=== PATIENT | female | born 1980 | race Caucasian/White ===

== ENCOUNTER 2018-02-14 21:34 | Emergency (ER) | payer MEDICARE ==
[~2018-02-14] VITALS: Ht 167.6 cm; Wt 143.3 kg
[~2018-02-14 21:34] MED LIST: ACHD5005 PO; CEPH250S PO; CLIN300C3 PO; D50KC PO; DOCU-143 PO; FAMO20TA5; FERR-47 PO; KRIL1CAP22 PO; MIRT30TA6 PO; NAPR-243 PO; OMEP20TA2 PO; OMG1KC PO; ONDA-42 SL; QTP100T PO; SULF1TAB35 PO; ZIPR60CA6 PO; ZLP10T PO; ZPR80C
--- OUTSIDE RECORDS SUMMARY | 2018-02-14 21:40 | XMS REPORT ---
Author Author KRISTIN GURROLA Organization [facility] Address [address] [place] [address] Care Team Providers Care Wire Inserter Name Role Phone JEWELLAnaliliaKRISTIN Unavailable PROBLEMS Unknown Problems ALLERGIES Substance Reaction Event Type Date Status Penicillin V Potassium hives Drug Allergy Jul, Active SOCIAL HISTORY No smoking Hx information available PLAN OF CARE VITAL SIGNS Height 66 in 2016-08-04 Weight 318.8 lbs 2016-08-04 Temperature 97.4 degrees Fahrenheit 2016-08-04 Heart Rate 80 bpm 2016-08-04 Respiratory Rate 20 2016-08-04 BMI 51.45 kg/m2 2016-08-04 Blood pressure systolic 132 mmHg 2016-08-04 Blood pressure diastolic 80 mmHg 2016-08-04 MEDICATIONS Medication Instructions Dosage Frequency Start Date End Date Duration Status Omeprazole 20 MG Orally Once a day 2 capsules 24h Active Lisinopril 10 MG Active Geodon 60 MG Orally Twice a day 1 capsule with food 12h Active Mirtazapine 30 MG Orally Once a day 1 tablet at bedtime 24h Active Seroquel 100 MG Orally Once a day 1 tablet 24h Active Amaryl 4 MG Orally Once a day 1 tablet with breakfast or the first main meal of the day 24h Active RESULTS No Results PROCEDURES Procedure Date Ordered Related Diagnosis Body Site FLUARIX QUAD P-FREE 3 AND UP .50 2016 Aug 04, 2016 SINGLE IMMUNIZATION ADMIN Aug 04, 2016 IMMUNIZATIONS Vaccine Route Administration Date Status FLUARIX QUAD P-FREE 3 AND UP .50 2015 IM Intramuscular Aug 04, 2016 Administered
--- OUTSIDE RECORDS SUMMARY | 2018-02-14 21:40 | XMS REPORT | Continuity of Care Document ---
Author Author [facility] Address Unknown Phone Unavailable Allergies Active Description Code Type Severity Reaction Onset Reported/Identified Relationship to Patient Clinical Status Yes PENICILLINS PENICILLINS MODERATE Yes PENICILLINS MODERATE DERMATOLOGICAL - THONG Yes Penicillins [id number] Drug Allergy Moderate HIVES 01/29/2013 Medications Medication Packaging Start Date Stop Date Route Dosage Sig IPRATROPIUM/ALBUTEROL INH SOLN (DUO-NEB INH SOLN) MLS 07/12/2017 07/12/2017 ONCE&2241 CEFUROXIME TAB 250 MG (CEFTIN) MG 07/12/2017 07/12/2017 ONCE&2259 PROMETHAZINE W/ CODEINE LIQ (PHENERGAN) ml 07/12/2017 07/12/2017 PRN ONCE Problems Date Dx Coded Attending Type Code Diagnosis Diagnosed By 01/29/2013 JASMYNE FLETCHER MD Ot 490 BRONCHITIS NOS 01/29/2013 JASMYNE FLETCHER MD Ot 786.2 COUGH 09/15/2013 JASMYNE FLETCHER MD Ot 558.9 NONINF GASTROENTERIT NEC 09/15/2013 JASMYNE FLETCHER MD Ot 787.01 NAUSEA WITH VOMITING 12/08/2014 Ot 719.45 02/17/2015 Ot 719.45 11/26/2015 Ot 719.45 JOINT PAIN- PELVIS 11/27/2015 DAWSON GRAMAJO DO Ot F17.210 NICOTINE DEPENDENCE, CIGARETTES, UNCOMPL 11/27/2015 DAWSON GRAMAJO DO Ot K35.80 UNSPECIFIED ACUTE APPENDICITIS 11/27/2015 DAWSON GRAMAJO DO Ot K42.9 UMBILICAL HERNIA WITHOUT OBSTRUCTION OR 07/12/2017 Sasha Agarwal 466.0 ACUTE BRONCHITIS 07/12/2017 Sasha Agarwal J20.9 ACUTE BRONCHITIS, UNSPECIFIED 09/18/2017 CORI MUHAMMAD 250.80 DIABETES MELLITUS WITH OTHER SPECIFIED MANIFESTATIONS, TYPE II OR UNSPECIFIED TYPE, NOT STATED UNCONTROLLED 09/18/2017 CORI MUHAMMAD 278.00 OBESITY, UNSPECIFIED 09/18/2017 CORI MUHAMMAD W 401.0 MALIGNANT ESSENTIAL HYPERTENSION 09/18/2017 CORI MUHAMMAD E11.65 TYPE 2 DIABETES MELLITUS WITH HYPERGLYCEMIA 09/18/2017 CORI MUHAMMAD E66.9 OBESITY, UNSPECIFIED 09/18/2017 CORI MUHAMMAD W I10 ESSENTIAL (PRIMARY) HYPERTENSION 09/18/2017 CORI MUHAMMAD 250.80 DIABETES MELLITUS WITH OTHER SPECIFIED MANIFESTATIONS, TYPE II OR UNSPECIFIED TYPE, NOT STATED UNCONTROLLED 09/18/2017 CORI MUHAMMAD 278.00 OBESITY, UNSPECIFIED 09/18/2017 CORI MUHAMMAD W 401.0 MALIGNANT ESSENTIAL HYPERTENSION 09/18/2017 CORI MUHAMMAD E11.65 TYPE 2 DIABETES MELLITUS WITH HYPERGLYCEMIA 09/18/2017 CORI MUHAMMAD E66.9 OBESITY, UNSPECIFIED 09/18/2017 CORI MUHAMMAD W I10 ESSENTIAL (PRIMARY) HYPERTENSION 09/18/2017 CORI MUHAMMAD 250.80 DIABETES MELLITUS WITH OTHER SPECIFIED MANIFESTATIONS, TYPE II OR UNSPECIFIED TYPE, NOT STATED UNCONTROLLED 09/18/2017 CORI MUHAMMAD 278.00 OBESITY, UNSPECIFIED 09/18/2017 CORI MUHAMMAD 401.0 MALIGNANT ESSENTIAL HYPERTENSION 09/18/2017 CORI MUHAMMAD E11.65 TYPE 2 DIABETES MELLITUS WITH HYPERGLYCEMIA 09/18/2017 CORI MUHAMMAD E66.9 OBESITY, UNSPECIFIED 09/18/2017 CORI MUHAMMAD I10 ESSENTIAL (PRIMARY) HYPERTENSION Procedures There is no data. Results Test Result Range Uric Acid - 10/03/16 16:20 Uric Acid 5.2 mg/dL 2.6-7.2 BMP - 07/12/17 22:23 Anion Gap 13 6-14 BUN 10 mg/dL 5-25 Calcium 9.1 mg/dL 8.3-10.4 Chloride 104 mmol/L 95-114 CO2 26 mEq/L 22-33 Creat 0.81 mg/dL 0.50-1.50 eGFR 79 mL/min/1.73m2 >59 Glucose 168 mg/dL 70-110 Osmo 290 280-295 Potassium 4.3 mmol/L 3.5-5.3 Sodium 139 mmol/L 134-148 Lipid Panel - 09/18/17 17:56 C/HDL 6.5 3.7-6.7 Cholesterol 200 mg/dL 100-240 HDL 31 mg/dL 30-85 LDL-Calculated 127 mg/dL 0-100 Trig 208 mg/dL 35-160 VLDL 42 mg/dL 0-42 Thyroid Stimulating Hormone - 09/18/17 17:56 TSH 0.97 mIU/mL 0.32-5.00 Encounters ACCT No. Visit Date/Time Discharge Status Pt. Type Provider Facility Loc./Unit Complaint [id number] 11/26/2015 23:37:00 11/27/2015 20:45:00 DIS Outpatient DAWSON GRAMAJO DO [facility] [id number] 09/15/2013 23:08:00 09/15/2013 23:49:00 DIS Emergency JASMYNE FLETCHER MD [facility] ER [id number] 01/29/2013 19:18:00 01/29/2013 20:19:00 DIS Emergency JASMYNE FLETCHER MD [facility] ER [id number] 12/08/2014 15:24:00 Document Registration [id number] 12/29/2010 15:29:00 Document Registration [id number] 09/18/2017 17:55:00 09/18/2017 23:59:00 DIS Outpatient CORI MUHAMMAD [id number] 07/12/2017 21:57:00 07/12/2017 23:23:00 DIS Outpatient Sasha Agarwal [id number] 10/09/2016 16:51:00 10/09/2016 23:59:00 DIS Outpatient CORI MUHAMMAD [id number] 10/03/2016 16:20:00 10/03/2016 23:59:00 DIS Outpatient CORI MUHAMMAD [id number] 07/12/2017 22:41:48 Document Registration
--- OUTSIDE RECORDS SUMMARY | 2018-02-14 21:40 | XMS REPORT | Continuity of Care Document ---
Author Author [facility] Organization [facility] Address Unknown Phone Unavailable Care Team Providers Care Mouse Breeder Name Role Phone CORI MUHAMMAD MD PP Insurance Providers Payer Name Policy Number Subscriber Name Relationship s Medicare [id number] Ariadne Griffith 01 Self / Same As Patient Advance Directives Directive Response Recorded Date Advance Directives N 01/29/13 7:23pm Problems No Known Problems or Medical conditions. Social History History Response Recorded Date/Time Alcohol Use Denies Use 01/29/13 7:23pm Recreational Drug Use N 01/29/13 7:23pm Recent Foreign Travel N 01/29/13 7:23pm Recent Infectious Disease Exposure N 11/08 7:23pm Hospitalization with Isolation Denies 11/08 7:23pm Sexually Transmitted Disease N 01/29/13 7 :23pm HIV/AIDS N 01/29/13 7:23pm Allergies, Adverse Reactions, Alerts Allergen Type Severity Reaction Last Updated Penicillins Allergy Intermediate HIVES 01/29/13 Medications Medication Dose Units Route Sig Qty Days Cephalexin Monohydrate (Keflex Susp) 2 Tsp PO TID 7 Mirtazapine (Mirtazapine 30 Mg) 30 Mg PO HS Zolpidem Tartrate (Ambien 10 Mg) 10 Mg PO HS Quetiapine Fumarate (Seroquel) 100 Mg PO HS Omeprazole 20 Mg PO DAILY Ziprasidone (Geodon) 120 Mg PO HS Naproxen (Naprosyn) 1 Each PO TID PRN 20 Clindamycin HCl (Cleocin Hcl) 1 Each PO QID 40 Trimethoprim/Sulfamethoxazole (Bactrim Ds Tablet) 1 Each PO BID 20 Famotidine (Pepcid) Ziprasidone (Geodon 80 Mg Cap) Response Recorded Date/Time Status not known Unknown Results No Known Relevant Diagnostic Tests, Laboratory Data and/or Discharge Summary. Encounters Encounter Location Date/Time Departed Emergency Room [facility] 11/08 7:18pm
[2018-02-14] MEDS ORDERED: NS IV 1000 ML 1,000 ML IV ONE ×2 (21:56→23:38)
[2018-02-14] MEDS ORDERED: ONDANSETRON 4 MG/2 ML (SDV) Z0FRAN IVP ONE ×2 (22:00→23:15)
[2018-02-14 22:36] LABS: BASOPHILS # (AUTO) 0.1 10^3/uL (0.0-0.1); BASOPHILS % (AUTO) 0 % (0-10); EOSINOPHILS # (AUTO) 0.1 10^3/uL (0.0-0.3); EOSINOPHILS % (AUTO) 1 % (0-10); HEMATOCRIT 34 % (35-52); HEMOGLOBIN 10.4 G/DL (11.5-16.0); LYMPHOCYTES # (AUTO) 4.1 X 10^3 (1.0-4.0); LYMPHOCYTES % (AUTO) 25 % (12-44); MEAN CORPUSCULAR HEMOGLOBIN 20 PG (25-34); MEAN CORPUSCULAR HGB CONC 31 G/DL (32-36); MEAN CORPUSCULAR VOLUME 65 FL (80-99); MEAN PLATELET VOLUME 9.6 FL (7.4-10.4); MONOCYTES # (AUTO) 1.1 X 10^3 (0.0-1.0); MONOCYTES % (AUTO) 7 % (0-12); NEUTROPHILS # (AUTO) 11.1 X 10^3 (1.8-7.8); NEUTROPHILS % (AUTO) 68 % (42-75); PLATELET COUNT 498 10^3/uL (130-400); RED BLOOD COUNT 5.24 10^6/uL (4.35-5.85); RED CELL DISTRIBUTION WIDTH 20.5 % (10.0-14.5); WHITE BLOOD COUNT 16.5 10^3/uL (4.3-11.0)
[2018-02-14] MEDS ORDERED: AMIT100T2 PO (22:42)
[2018-02-14] MEDS ORDERED: LISI10TA2 PO (22:42)
[2018-02-14] MEDS ORDERED: PIOG15TA9 PO (22:42)
--- NOTE | 2018-02-14 22:51 | ED GI ---
General Chief Complaint: Abdominal/GI Problems Stated Complaint: ABD PAIN Nursing Triage Note: PATIENT STATES THAT SHE HAS BEEN UNDER STRESS LATELY AND HAS NOT SLEPT SINCE YESTERDAY AND HAS HAD VOMITED THREE TIMES TODAY AND HAS PRESSURE ACROSS HER MEDIAL ABD. BM NORMAL THIS AM. Sepsis Screen: No Definite Risk Source of Information: Patient (PT IS SOMEWHAT DIFFICULT HISTORIAN) History of Present Illness Date Seen by Provider: Feb 14, 2018 Time Seen by Provider: 21:50 Initial Comments C/O "UPSET STOMACH" SINCE 10:00 AM TODAY HAS "VOMITED" X 3 TODAY--DRY HEAVES. PT STATES "IT'S NOT NAUSEA, IT'S UPSET" HAD 1 LOOSE STOOL TODAY, WHICH IS NORMAL BM FOR PATIENT C/O "STOMACH ACHE" ACROSS UPPER ABDOMEN--STATES "IT'S NOT PAIN, IT'S A STOMACH ACHE" ONLY FOOD INTAKE TODAY WAS PEANUT BUTTER AND JELLY SANDWICH TODAY AT 1500 HAS BEEN DRINKING LIQUIDS STATES SHE HAS BEEN URINATING ALOT TODAY--VOIDED IN WAITING ROOM ON ARRIVAL, AND VOIDED JUST BEFORE SHE LEFT THE HOUSE TO COME TO ER NO SUSPICIOUS FOODS OR SICK CONTACTS PT IS DIABETIC--HAS NOT CHECKED BLOOD GLUCOSE TODAY--"JUST DIDN'T FEEL GOOD" AND DIDN'T FEEL LIKE CHECKING IT. 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 Allergies and Home Medications Allergies Coded Allergies: Penicillins (Unverified Allergy, Intermediate, HIVES, 01/29/13) Home Medications Amitriptyline HCl 100 Mg Tablet, 100 MG PO HS, (Reported) Hyoscyamine Sulfate 0.125 Mg Tab.subl, 1-2 TAB SL Q4H Prescribed by: NATE PAZ on 02/15/18 0022 Krill/Om-3/Dha/Epa/Phospho/Ast 1 Each Capsule, 1 EACH PO DAILY, (Reported) Lisinopril 10 Mg Tablet, 10 MG PO DAILY, (Reported) Omeprazole 20 Mg Tablet.dr, 20 MG PO DAILY, (Reported) Ondansetron 4 Mg Tab.rapdis, 4 MG PO Q4H Prescribed by: NATE PAZ on 02/15/1821 Pioglitazone HCl 15 Mg Tablet, 15 MG PO DAILY, (Reported) Ziprasidone 60 Mg Capsule, 120 MG PO HS, (Reported) Patient Home Medication List Home Medication List Reviewed: Yes Review of Systems Constitutional: no symptoms reported Respiratory: No Symptoms Reported Cardiovascular: No Symptoms Reported Gastrointestinal: See HPI, Abdominal Pain, Nausea Genitourinary: No Symptoms Reported Musculoskeletal: no symptoms reported Skin: no symptoms reported Psychiatric/Neurological: No Symptoms Reported Endocrine: Increased Urine Hematologic/Lymphatic: No Symptoms Reported Past Vtiehav-Xwfpku-Xjheui Hx Patient Social History Alcohol Use: Past History (HX OF ABUSE) Recreational Drug Use: Yes (HX OF ABUSE) Smoking Status: Current Everyday Smoker (1 PPD) Type Used: Cigarettes (1 PPD) Recent Foreign Travel: No Contact w/Someone Who Travel: No Recent Infectious Disease Expo: No Immunizations Up To Date Tetanus Booster (TDap): Unknown Seasonal Allergies Seasonal Allergies: No Past Medical History Surgeries: Yes ( X 2) Appendectomy, Section, Gallbladder, Tubal Ligation Respiratory: No Cardiac: Yes Hypertension Neurological: No : No (PATIENT STATES THAT SHE IS NOT) Reproductive Disorders: Yes (endometriosis) Female 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: 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 Sexually Transmitted Disease: No HIV/AIDS: No Genitourinary: Yes Bladder Infection Gastrointestinal: Yes Gastroesophageal Reflux, Chronic Diarrhea Musculoskeletal: No Endocrine: Yes Diabetes, Non-Insulin dep HEENT: No Cancer: No Psychosocial: Yes (EXTENSIVE PSYCH ISSUES) Sleep Difficulties, Anxiety, Bipolar, Personality Disorder, Schizophrenia, Depression Adverse Reaction/Blood Tranf: No Family Medical History Diabetes mellitus 19 MOTHER FH: lupus 19 MOTHER Hypercholesterolemia 19 MOTHER Hypertension 19 MOTHER Myocardial infarction 19 MOTHER No Pertinent Family Hx Physical Exam Vital Signs Vital Signs - First Documented 02/14/18 21:46 Temp 98.1 Pulse 87 Resp 18 B/P (MAP) 186/96 (126) Pulse Ox 99 O2 Delivery Room Air Capillary Refill : Less Than 3 Seconds Height/Weight/BMI Height: 5'6.00" Weight: 316lbs. 4.0oz. 143.079321ev; 52.9 BMI Method:Stated General Appearance: no apparent distress, obese, other (DOES NOT APPEAR ILL OR TO BE IN ANY DISCOMFORT) HEENT: other (ORAL MUCOSA MOIST) Neck: normal inspection Respiratory: normal breath sounds, no respiratory distress, no accessory muscle use Cardiovascular: regular rate, rhythm, no murmur Gastrointestinal: normal bowel sounds, non tender, soft, no organomegaly, no pulsatile mass; No distended, No guarding, No rebound, No tenderness Extremities: normal inspection, no pedal edema, normal capillary refill Back: normal inspection, no CVA tenderness Neurologic/Psychiatric: him analyst II-XII nml as tested, no motor/sensory deficits, alert, normal mood/affect, oriented x 3 Skin: normal color, warm/dry Progress/Results/Core Measures Results/Orders Lab Results Laboratory Tests Test 02/14/18 22:27 02/15/18 00:10 Range/Units White Blood Count 16.5 H 4.3-11.0 10^3/uL Red Blood Count 5.24 4.35-5.85 10^6/uL Hemoglobin 10.4 L 11.5-16.0 G/DL Hematocrit 34 L 35-52 % Mean Corpuscular Volume 65 L 80-99 FL Mean Corpuscular Hemoglobin 20 L 25-34 PG Mean Corpuscular Hemoglobin Concent 31 L 32-36 G/DL Red Cell Distribution Width 20.5 H 10.0-14.5 % Platelet Count 498 H 130-400 10^3/uL Mean Platelet Volume 9.6 7.4-10.4 FL Neutrophils (%) (Auto) 68 42-75 % Lymphocytes (%) (Auto) 25 12-44 % Monocytes (%) (Auto) 7 0-12 % Eosinophils (%) (Auto) 1 0-10 % Basophils (%) (Auto) 0 0-10 % Neutrophils # (Auto) 11.1 H 1.8-7.8 X 10^3 Lymphocytes # (Auto) 4.1 H 1.0-4.0 X 10^3 Monocytes # (Auto) 1.1 H 0.0-1.0 X 10^3 Eosinophils # (Auto) 0.1 0.0-0.3 10^3/uL Basophils # (Auto) 0.1 0.0-0.1 10^3/uL Neutrophils % (Manual) 54 % Lymphocytes % (Manual) 41 % Monocytes % (Manual) 1 % Eosinophils % (Manual) 1 % Basophils % (Manual) 2 % Band Neutrophils 1 % Blood Morphology Comment NORMAL Sodium Level 137 135-145 MMOL/L Potassium Level 4.2 3.6-5.0 MMOL/L Chloride Level 105 98-107 MMOL/L Carbon Dioxide Level 22 21-32 MMOL/L Anion Gap 10 5-14 MMOL/L Blood Urea Nitrogen 6 L 7-18 MG/DL Creatinine 0.72 0.60-1.30 MG/DL Estimat Glomerular Filtration Rate > 60 BUN/Creatinine Ratio 8 Glucose Level 152 H 70-105 MG/DL Calcium Level 9.6 8.5-10.1 MG/DL Magnesium Level 2.1 1.8-2.4 MG/DL Total Bilirubin 0.2 0.1-1.0 MG/DL Aspartate Amino Transf (AST/SGOT) 14 5-34 U/L Alanine Aminotransferase (ALT/SGPT) 16 0-55 U/L Alkaline Phosphatase 93 40-136 U/L Total Protein 7.7 6.4-8.2 GM/DL Albumin 4.1 3.2-4.5 GM/DL Amylase Level 26 25-125 U/L Lipase 10 8-78 U/L Urine Color YELLOW Urine Clarity CLEAR Urine pH 6.5 5-9 Urine Specific [place] 1.010 L 1.016-1.022 Urine Protein NEGATIVE NEGATIVE Urine Glucose (UA) NEGATIVE NEGATIVE Urine Ketones NEGATIVE NEGATIVE Urine Nitrite NEGATIVE NEGATIVE Urine Bilirubin NEGATIVE NEGATIVE Urine Urobilinogen NORMAL NORMAL MG/DL Urine Leukocyte Esterase 1+ H NEGATIVE Urine RBC (Auto) NEGATIVE NEGATIVE Urine RBC NONE /HPF Urine WBC NONE /HPF Urine Squamous Epithelial Cells 5-10 /HPF Urine Crystals NONE /LPF Urine Bacteria NEGATIVE /HPF Urine Casts NONE /LPF Urine Mucus NEGATIVE /LPF Urine Culture Indicated NO My Orders Orders - NATE PAZ DO Accucheck Stat ONCE (02/14/18 21:56) Saline Lock/Iv-Start (02/14/18 21:56) Amylase (02/14/18 21:56) Cbc With Automated Diff (02/14/18 21:56) Comprehensive Metabolic Panel (02/14/18 21:56) Lipase (02/14/18 21:56) Magnesium (02/14/18 21:56) Ua Culture If Indicated (02/14/18 21:56) Saline Lock/Iv-Start (02/14/18 21:56) Ns Iv 1000 Ml (Sodium Chloride 0.9%) (02/14/18 21:56) Ondansetron Injection (Zofran Injectio (02/14/18 22:00) Manual Differential (02/14/18 22:27) Ondansetron Injection (Zofran Injectio (02/14/18 23:15) Hyoscyamine Sl Tablet (Levsin Sl Tablet) (02/14/18 23:15) Ct Abdomen/Pelvis Wo (02/14/18 23:23) Saline Lock/Iv-Start (02/14/18 23:38) Ns Iv 1000 Ml (Sodium Chloride 0.9%) (02/14/18 23:38) Rx-Hyoscyamine Tab (Rx-Levsin Sl) (02/15/18 00:53) Rx-Ondansetron Po (Rx-Zofran Po) (02/15/18 00:53) Medications Given in ED Current Medications Medications Dose Ordered Sig/Yogesh Route Start Time Stop Time Status Last Admin Dose Admin Hyoscyamine Sulfate 0.25 mg ONCE ONCE PO 02/14/18 23:15 02/14/18 23:16 DC 02/14/18 23:15 0.25 MG Ondansetron HCl 4 mg ONCE ONCE IVP 02/14/18 22:00 02/14/18 22:01 DC 02/14/18 22:46 4 MG Ondansetron HCl 4 mg ONCE ONCE IVP 02/14/18 23:15 02/14/18 23:16 DC 02/14/18 23:15 4 MG Sodium Chloride 1,000 ml @ 0 mls/hr Q0M ONCE IV 02/14/18 21:56 02/14/18 21:58 DC 02/14/18 22:36 999 MLS/HR Sodium Chloride 1,000 ml @ 0 mls/hr Q0M ONCE IV 02/14/18 23:38 02/14/18 23:40 DC 02/14/18 23:57 999 MLS/HR Vital Signs/I&O 02/14/18 21:46 Temp 98.1 Pulse 87 Resp 18 B/P (MAP) 186/96 (126) Pulse Ox 99 O2 Delivery Room Air 02/15/18 00:00 Intake Total 1000 ml Balance 1000 ml Blood Pressure Mean: 126 Progress Progress Note : Progress Note SYMPTOMS RESOLVED WHILE IN XRAY DEPT NO VOMITING OR DIARRHEA DURING ER STAY Diagnostic Imaging Comments CT ABDOMEN/PELVIS--NO ACUTE PROCESS, STABLE FAT-CONTAINING HERNIA, SMALL RIGHT OVARIAN CYST--PER [facility] VIA FAX @ 0205 Reviewed: Reviewed by Me Departure Impression Primary Impression: acute gastroenteritis Disposition: 01 HOME, SELF-CARE Condition: Improved Departure-Patient Inst. Referrals: CORI MUHAMMAD MD (PCP/Family) Primary Care Physician Patient Instructions: Viral Gastroenteritis, Adult (DC) Add. Discharge Instructions: CLEAR LIQUIDS--WATER, BROTH, JELLO, GATORADE TOMORROW IF YOU ARE BETTER, ADD BRATS DIET TO CLEAR LIQUIDS--BANANAS, RICE, APPLESAUCE, TOAST, SALTINES FOLLOW UP WITH YOUR DR IN 2-3 DAYS IF NO BETTER All discharge instructions reviewed with patient and/or family. Voiced understanding. Scripts Hyoscyamine Sulfate (Levsin-Sl) 0.125 Mg Tab.subl 1-2 TAB SL Q4H for Abdominal Pain, #10 TAB Prov: NATE PAZ DO 02/15/18 Ondansetron (Zofran Odt) 4 Mg Tab.rapdis 4 MG PO Q4H for Nausea/Vomiting, #10 TAB Prov: NATE PAZ DO 02/15/18 NATE PAZ DO Feb 14, 2018 22:51
[2018-02-14 22:53] LABS: BAND NEUTROPHILS 1 %; BASOPHILS % (MANUAL) 2 %; EOSINOPHILS % (MANUAL) 1 %; LYMPHOCYTES % (MANUAL) 41 %; MONOCYTES % (MANUAL) 1 %; NEUTROPHILS % (MANUAL) 54 %; RBC MORPH NORMAL
[2018-02-14 22:57] LABS: ALANINE AMINOTRANSFERASE 16 U/L (0-55); ALBUMIN 4.1 GM/DL (3.2-4.5); ALKALINE PHOSPHATASE 93 U/L (40-136); AMYLASE 26 U/L (25-125); BILIRUBIN,TOTAL 0.2 MG/DL (0.1-1.0); BUN/CREATININE RATIO 8; CALCIUM 9.6 MG/DL (8.5-10.1); CARBON DIOXIDE 22 MMOL/L (21-32); CHLORIDE 105 MMOL/L (98-107); CREATININE SERUM 0.72 MG/DL (0.60-1.30); GFR ESTIMATED > 60; GLUCOSE 152 MG/DL (70-105); LIPASE 10 U/L (8-78); MAGNESIUM 2.1 MG/DL (1.8-2.4); POTASSIUM 4.2 MMOL/L (3.6-5.0); SODIUM 137 MMOL/L (135-145); TOTAL PROTEIN 7.7 GM/DL (6.4-8.2)
[2018-02-14] MEDS ORDERED: HYOSCYAMINE 0.125 MG (LEVSIN) TAB PO ONE (23:15)
[2018-02-15] MEDS ORDERED: ONDA4TAB8 PO (00:22)
[2018-02-15] MEDS ORDERED: HYOS0.1283 SL (00:22)
[2018-02-15 00:40] LABS: BILIRUBIN,URINE NEGATIVE (NEGATIVE); CLARITY,URINE CLEAR; COLOR,URINE YELLOW; GLUCOSE, URINE (UA) NEGATIVE (NEGATIVE); KETONES,URINE NEGATIVE (NEGATIVE); LEUKOCYTE ESTERASE ,URINE 1+ (NEGATIVE); NITRITE,URINE NEGATIVE (NEGATIVE); PH,URINE 6.5 (5-9); PROTEIN,URINE NEGATIVE (NEGATIVE); UROBILINOGEN,URINE NORMAL (NORMAL)
[2018-02-15 00:51] LABS: BACTERIA,URINE NEGATIVE /HPF
[2018-02-15] MEDS ORDERED: RX-ONDANSETRON 4 MG ODT (ZOFRAN) PPK #4 PO STA (00:53)
[2018-02-15] MEDS ORDERED: RX-HYOSCYAMINE 0.125 MG SL (LEVSIN) PPK#6 SL STA (00:53)
[2018-02-15 01:17] VITALS: BP 166/82
--- NOTE | 2018-02-15 06:38 | Diagnostic Imaging Report ---
PROCEDURE: CT abdomen and pelvis without contrast. TECHNIQUE: Multiple contiguous axial images were obtained through the abdomen and pelvis without the use of intravenous contrast. INDICATION: Abdominal pain. FINDINGS: The previous exam of 11/26/2015 indicated acute appendicitis. In the interval since the prior study, the patient has undergone an appendectomy. As noted on the prior exam, there has also been a prior cholecystectomy. The previous study also revealed a fat-containing umbilical hernia. The hernia has increased in size somewhat since the prior exam and now measures 6.8 cm as opposed to 6.3 cm previously; however, there is still no incarceration or obstruction of the bowel by the hernia. The liver, spleen, pancreas, adrenals, kidneys, aorta and inferior vena cava are unremarkable for an acute abnormality. The stomach is not well distended and consequently difficult to assess. The images through the pelvis show that the uterus is prominent but not enlarged. As noted on the prior study, there has been a prior tubal ligation. Also, as seen on the prior exam, there does appear to be a cyst associated with the right ovary. The cyst is similar in size measuring approximately 3.1 cm. Left ovary is unremarkable. There is no clear evidence for diverticulosis or diverticulitis. The lung bases are clear. The bone windows show no sign of a fracture or of a destructive lesion. IMPRESSION: 1. In the interval since the prior study, the patient has undergone appendectomy. The overall appearance of the abdomen and pelvis has not changed significantly otherwise. There is no acute abnormality evident. 2. There has also been a prior cholecystectomy and a tubal ligation procedure. 3. The small cyst associated with the right ovary and the fat-containing umbilical hernia noted on the prior study are essentially no different. Dictated by: Dictated on workstation # [id number]
== END 2018-02-15 01:18 | disposition home or self-care (01) ==
LOC: EDUNIT# 21:34 → ER 21:35
DX: K52.9 Noninfective gastroenteritis and colitis, unspecified (principal); I10 Essential (primary) hypertension; K21.9 Gastro-esophageal reflux disease without esophagitis; E11.9 Type 2 diabetes mellitus without complications; F41.9 Anxiety disorder, unspecified; F31.9 Bipolar disorder, unspecified; F20.9 Schizophrenia, unspecified; F17.210 Nicotine dependence, cigarettes, uncomplicated; Z90.89 Acquired absence of other organs; Z82.49 Family history of ischemic heart disease and other diseases of the circulatory system; Z87.448 Personal history of other diseases of urinary system; Z87.19 Personal history of other diseases of the digestive system; Z87.59 Personal history of other complications of pregnancy, childbirth and the puerperium; Z98.51 Tubal ligation status; Z88.0 Allergy status to penicillin; Z79.52 Long term (current) use of systemic steroids
CPT/HCPCS: 36415; 74176; 80053; 81000; 82150; 83690; 83735; 85007; 85027; 96374; 96375

== ENCOUNTER 2018-07-17 20:33 | Emergency (ER) | payer MEDICARE, OTHER ==
[~2018-07-17] VITALS: Ht 167.6 cm; Wt 137.0 kg
[~2018-07-17 20:33] MED LIST changes: +AMIT100T2 PO; +HYOS0.1283 SL; +LISI10TA2 PO; +ONDA4TAB8 PO; +PIOG15TA9 PO
--- OUTSIDE RECORDS SUMMARY | 2018-07-17 20:38 | XMS REPORT | Continuity of Care Document ---
Author Author [facility] Address Unknown Phone Unavailable Allergies Active Description Code Type Severity Reaction Onset Reported/Identified Relationship to Patient Clinical Status Yes PENICILLINS PENICILLINS MODERATE Yes PENICILLINS MODERATE DERMATOLOGICAL - THONG Yes Penicillins [id number] Drug Allergy Moderate HIVES 01/29/2013 Medications Medication [...] 09/18/2017 CORI MUHAMMAD I10 ESSENTIAL (PRIMARY) HYPERTENSION 09/18/2017 CORI MUHAMMAD 250.80 DIABETES MELLITUS WITH OTHER SPECIFIED MANIFESTATIONS, TYPE II OR UNSPECIFIED TYPE, NOT STATED UNCONTROLLED 09/18/2017 CORI MUHAMMAD 278.00 OBESITY, UNSPECIFIED 09/18/2017 CORI MUHAMMAD 401.0 MALIGNANT ESSENTIAL HYPERTENSION 09/18/2017 CORI MUHAMMAD E11.65 TYPE 2 DIABETES MELLITUS WITH HYPERGLYCEMIA 09/18/2017 CORI MUHAMMAD E66.9 OBESITY, UNSPECIFIED 09/18/2017 CORI MUHAMMAD W I10 ESSENTIAL (PRIMARY) HYPERTENSION 02/15/2018 BRANDI DO, NATE K Ot E11.9 TYPE 2 DIABETES MELLITUS WITHOUT COMPLIC 02/15/2018 BRANDI DO, NATE K Ot F17.210 NICOTINE DEPENDENCE, CIGARETTES, UNCOMPL 02/15/2018 BRANDI DO, NATE K Ot F20.9 SCHIZOPHRENIA, UNSPECIFIED 02/15/2018 BRANDI DO, NATE K Ot F31.9 BIPOLAR DISORDER, UNSPECIFIED 02/15/2018 BRANDI DO, NATE K Ot F41.9 ANXIETY DISORDER, UNSPECIFIED 02/15/2018 BRANDI DO, NATE K Ot I10 ESSENTIAL (PRIMARY) HYPERTENSION 02/15/2018 BRANDI DO, NATE K Ot K21.9 GASTRO-ESOPHAGEAL REFLUX DISEASE WITHOUT 02/15/2018 BRANDI DO, NATE K Ot K52.9 NONINFECTIVE GASTROENTERITIS AND COLITIS 02/15/2018 NATE PAZ DO Ot R11.10 VOMITING, UNSPECIFIED 02/15/2018 NATE PAZ DO Ot Z79.52 HALF-WAY (CURRENT) USE OF SYSTEMIC STER 02/15/2018 NATE PAZ DO Ot Z82.49 FAMILY HX OF ISCHEM HEART DIS AND OTH DI 02/15/2018 NATE PAZ DO Ot Z87.19 PERSONAL HISTORY OF OTHER DISEASES OF TH 02/15/2018 NATE PAZ DO Ot Z87.448 PERSONAL HISTORY OF OTHER DISEASES OF UR 02/15/2018 NATE PAZ DO Ot Z87.59 PERSONAL HISTORY OF COMP OF PREG, CHLDBR 02/15/2018 NATE PAZ DO Ot Z88.0 ALLERGY STATUS TO PENICILLIN 02/15/2018 NATE PAZ DO Ot Z90.89 ACQUIRED ABSENCE OF OTHER ORGANS 02/15/2018 NATE PAZ DO Ot Z98.51 TUBAL LIGATION STATUS 02/17/2018 NATE PAZ DO Ot E11.9 TYPE 2 DIABETES MELLITUS WITHOUT COMPLIC 02/17/2018 NATE PAZ DO Ot F17.210 NICOTINE DEPENDENCE, CIGARETTES, UNCOMPL 02/17/2018 NATE PAZ DO Ot F20.9 SCHIZOPHRENIA, UNSPECIFIED 02/17/2018 NATE PAZ DO Ot F31.9 BIPOLAR DISORDER, UNSPECIFIED 02/17/2018 NATE PAZ DO Ot F41.9 ANXIETY DISORDER, UNSPECIFIED 02/17/2018 NATE PAZ DO Ot I10 ESSENTIAL (PRIMARY) HYPERTENSION 02/17/2018 NATE PAZ DO Ot K21.9 GASTRO-ESOPHAGEAL REFLUX DISEASE WITHOUT 02/17/2018 LIAM PAZ DOA Erica Ot K52.9 NONINFECTIVE GASTROENTERITIS AND COLITIS 02/17/2018 NATE PAZ DO Ot R11.10 VOMITING, UNSPECIFIED 02/17/2018 NATE PAZ DO Ot Z79.52 HALF-WAY (CURRENT) USE OF SYSTEMIC STER 02/17/2018 NATE PAZ DO Ot Z82.49 FAMILY HX OF ISCHEM HEART DIS AND OTH DI 02/17/2018 NATE PAZ DO Ot Z87.19 PERSONAL HISTORY OF OTHER DISEASES OF 02/17/2018 NATE PAZ DO Ot Z87.448 PERSONAL HISTORY OF OTHER DISEASES OF UR 02/17/2018 NATE PAZ DO Ot Z87.59 PERSONAL HISTORY OF COMP OF PREG, CHLDBR 02/17/2018 NATE PAZ DO Ot Z88.0 ALLERGY STATUS TO PENICILLIN 02/17/2018 NATE PAZ DO Ot Z90.89 ACQUIRED ABSENCE OF OTHER ORGANS 02/17/2018 NATE PAZ DO Ot Z98.51 TUBAL LIGATION STATUS Procedures There is no data. Results Test [...] - 09/18/17 17:56 TSH 0.97 mIU/mL 0.32-5.00 Complete blood count (CBC) with automated white blood cell (WBC) differential - 02/14/18 22:27 Blood leukocytes automated count (number/volume) 16.5 10*3/uL 4.3-11.0 Blood erythrocytes automated count (number/volume) 5.24 10*6/uL 4.35-5.85 Venous blood hemoglobin measurement (mass/volume) 10.4 g/dL 11.5-16.0 Blood hematocrit (volume fraction) 34 % 35-52 Automated erythrocyte mean corpuscular volume 65 [foz_us] 80-99 Automated erythrocyte mean corpuscular hemoglobin (mass per erythrocyte) 20 pg 25-34 Automated erythrocyte mean corpuscular hemoglobin concentration measurement ( mass/volume) 31 g/dL 32-36 Automated erythrocyte distribution width ratio 20.5 % 10.0-14.5 Automated blood platelet count (count/volume) 498 10*3/uL 130-400 Automated blood platelet mean volume measurement 9.6 [foz_us] 7.4-10.4 Automated blood neutrophils/100 leukocytes 68 % 42-75 Automated blood lymphocytes/100 leukocytes 25 % 12-44 Blood monocytes/100 leukocytes 7 % 0-12 Automated blood eosinophils/100 leukocytes 1 % 0-10 Automated blood basophils/100 leukocytes 0 % 0-10 Blood neutrophils automated count (number/volume) 11.1 10*3 1.8-7.8 Blood lymphocytes automated count (number/volume) 4.1 10*3 1.0-4.0 Blood monocytes automated count (number/volume) 1.1 10*3 0.0-1.0 Automated eosinophil count 0.1 10*3/uL 0.0-0.3 Automated blood basophil count (count/volume) 0.1 10*3/uL 0.0-0.1 Blood manual differential performed detection - 02/14/18 22:27 Blood monocytes/100 leukocytes 1 % NRG Manual blood segmented neutrophils/100 leukocytes 54 % NRG Blood band neutrophils/100 leukocytes 1 % NRG Manual blood lymphocytes/100 leukocytes 41 % NRG Manual eosinophils/100 leukocytes in nose 1 % NRG Manual blood basophils/100 leukocytes 2 % NRG Blood erythrocyte morphology finding identification [facility] Comprehensive metabolic panel - 02/14/18 22:27 Serum or plasma sodium measurement (moles/volume) 137 mmol/L 135-145 Serum or plasma potassium measurement (moles/volume) 4.2 mmol/L 3.6-5.0 Serum or plasma chloride measurement (moles/volume) 105 mmol/L 98-107 Carbon dioxide 22 mmol/L 21-32 Serum or plasma anion gap determination (moles/volume) 10 mmol/L 5-14 Serum or plasma urea nitrogen measurement (mass/volume) 6 mg/dL 7-18 Serum or plasma creatinine measurement (mass/volume) 0.72 mg/dL 0.60-1.30 Serum or plasma urea nitrogen/creatinine mass ratio 8 NRG Serum or plasma creatinine measurement with calculation of estimated glomerular filtration rate > NRG Serum or plasma glucose measurement (mass/volume) 152 mg/dL 70-105 Serum or plasma calcium measurement (mass/volume) 9.6 mg/dL 8.5-10.1 Serum or plasma total bilirubin measurement (mass/volume) 0.2 mg/dL 0.1-1.0 Serum or plasma alkaline phosphatase measurement (enzymatic activity/volume) 93 U/L 40-136 Serum or plasma aspartate aminotransferase measurement (enzymatic activity/ volume) 14 U/L 5-34 Serum or plasma alanine aminotransferase measurement (enzymatic activity/volume ) 16 U/L 0-55 Serum or plasma protein measurement (mass/volume) 7.7 g/dL 6.4-8.2 Serum or plasma albumin measurement (mass/volume) 4.1 g/dL 3.2-4.5 Magnesium - 02/14/18 22:27 Magnesium 2.1 mg/dL 1.8-2.4 Serum or plasma amylase measurement (enzymatic activity/volume) - 02/14/18 22: 27 Serum or plasma amylase measurement (enzymatic activity/volume) 26 U /L 25-125 Lipase - 02/14/18 22:27 Lipase 10 U/L 8-78 Complete urinalysis with reflex to culture - 02/15/18 00:10 Urine color determination YELLOW NRG Urine clarity determination CLEAR NRG Urine pH measurement by test strip 6.5 5-9 Specific gravity of urine by test strip 1.010 1.016- 1.022 Urine protein assay by test strip, semi-quantitative NEGATIVE NEGATIVE Urine glucose detection by automated test strip NEGATIVE NEGATIVE Erythrocytes detection in urine sediment by light microscopy NEGATIVE NEGATIVE Urine ketones detection by automated test strip NEGATIVE NEGATIVE Urine nitrite detection by test strip NEGATIVE NEGATIVE Urine total bilirubin detection by test strip NEGATIVE NEGATIVE Urine urobilinogen measurement by automated test strip (mass/volume) NORMAL NORMAL Urine leukocyte esterase detection by dipstick 1+ NEGATIVE Automated urine sediment erythrocyte count by microscopy (number/high power field) NONE NRG Automated urine sediment leukocyte count by microscopy (number/high power field ) NONE NRG Bacteria detection in urine sediment by light microscopy NEGATIVE NRG Squamous epithelial cells detection in urine sediment by light microscopy 5-10 NRG Crystals detection in urine sediment by light microscopy NONE NRG Casts detection in urine sediment by light microscopy NONE NRG Mucus detection in urine sediment by light microscopy NEGATIVE NRG Complete urinalysis with reflex to culture NO NRG Encounters ACCT No. Visit Date/Time Discharge Status Pt. Type Provider Facility Loc./Unit Complaint [id number] 02/14/2018 21:35:00 02/15/2018 01:18:00 DIS Emergency NATE PAZ DO [facility] ER ABD PAIN [id number] 11/26/2015 23:37:00 11/27/2015 20:45:00 DIS Outpatient DAWSON GRAMAJO DO [facility] ACUTE APPENDICITIS; URI [id number] 09/15/2013 23:08:00 09/15/2013 23:49:00 DIS Emergency JASMYNE FLETCHER MD [facility] ER N/V/D/F [id number] 01/29/2013 19:18:00 01/29/2013 20:19:00 DIS Emergency JASMYNE FLETCHER MD [facility] ER COUGH [id number] 07/17/2018 20:34:00 ACT Emergency NATE PAZ DO [facility] ER HEMORRHOID PAIN [id number] 12/08/2014 15:24:00 Document Registration [id number] 12/29/2010 15:29:00 Document Registration [id number] 09/18/2017 17:55:00 09/18/2017 23:59:00 DIS Outpatient CORI MUHAMMAD [id number] 07/12/2017 21:57:00 07/12/2017 23:23:00 DIS Outpatient Sasha Agarwal [id number] 10/09/2016 16:51:00 10/09/2016 23:59:00 DIS Outpatient CORI MUHAMMAD [id number] 10/03/2016 16:20:00 10/03/2016 23:59:00 DIS Outpatient CORI MUHAMMAD [id number] 07/12/2017 22:41:48 Document Registration
--- NOTE | 2018-07-17 21:06 | ED GI ---
General Chief Complaint: Rect Problems Stated Complaint: HEMORRHOID PAIN Nursing Triage Note: Pt has cc of hemorroid. Pt has had rectal pain/hemorroid pain for the past two weeks, but at 0400 the pain increased. Pt stated it is on left side and she thinks it is on the inside. Pt stated she has needed surgery on it for long time and put it off, because she was scared of it, but now realizes that she needs it. Pt stated hurts after eating. Sepsis Screen: No Definite Risk Source of Information: Patient Exam Limitations: No Limitations History of Present Illness Date Seen by Provider: Jul 17, 2018 Time Seen by Provider: 21:01 Initial Comments To ER with c/o hemorrhoid pain. She's had hemorrhoid pain for 2 weeks, worse for 3 days. She reports pain which feels like it is on the back left side of the anus. She did have some bloody stool after a bowel movement yesterday. Pain is worse with bowel movements. She is scheduled to see Dr. Chaudhry from surgery on 07/24. Timing/Duration: 1-2 Days Severity/Quality: Moderate Radiation: No Radiation Allergies and Home Medications Allergies Coded Allergies: Penicillins (Unverified Allergy, Intermediate, HIVES, 01/29/13) Home Medications Amitriptyline HCl 100 Mg Tablet, 100 MG PO HS, (Reported) Hyoscyamine Sulfate 0.125 Mg Tab.subl, 1-2 TAB SL Q4H Prescribed by: NATE PAZ on 02/15/1821 Krill/Om-3/Dha/Epa/Phospho/Ast 1 Each Capsule, 1 EACH PO DAILY, (Reported) Lisinopril 10 Mg Tablet, 10 MG PO DAILY, (Reported) Omeprazole 20 Mg Tablet.dr, 20 MG PO DAILY, (Reported) Ondansetron 4 Mg Tab.rapdis, 4 MG PO Q4H Prescribed by: NATE PAZ on 02/15/1821 Pioglitazone HCl 15 Mg Tablet, 15 MG PO DAILY, (Reported) Ziprasidone 60 Mg Capsule, 120 MG PO HS, (Reported) Patient Home Medication List Home Medication List Reviewed: Yes Review of Systems Review of Systems Constitutional: see HPI EENTM: No Symptoms Reported Respiratory: No Symptoms Reported Cardiovascular: No Symptoms Reported Gastrointestinal: See HPI, Rectal Bleeding Genitourinary: No Symptoms Reported Musculoskeletal: no symptoms reported Skin: no symptoms reported Psychiatric/Neurological: No Symptoms Reported Past Bwszosk-Qiwoxd-Ywhlhu Hx Patient Social History Alcohol Use: Denies Use Recreational Drug Use: No Smoking Status: Current Everyday Smoker Type Used: Cigarettes Recent Foreign Travel: No Contact w/Someone Who Travel: No Recent Infectious Disease Expo: No Recent Hopitalizations: No Immunizations Up To Date Tetanus Booster (TDap): Unknown Seasonal Allergies Seasonal Allergies: No Past Medical History Surgeries: Yes ( X 2) Appendectomy, Section, Gallbladder, Tubal Ligation Respiratory: No Cardiac: Yes Hypertension Neurological: No Last Menstrual Period: Jun 18, 2018 Reproductive Disorders: Yes (endometriosis) Female Reproductive Disorders: Endometriosis 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 Sexually Transmitted Disease: No HIV/AIDS: No Genitourinary: Yes Bladder Infection Gastrointestinal: Yes Gastroesophageal Reflux, Chronic Diarrhea Musculoskeletal: No Endocrine: Yes Diabetes, Non-Insulin dep HEENT: No Cancer: No Psychosocial: Yes (EXTENSIVE PSYCH ISSUES) Sleep Difficulties, Anxiety, Bipolar, Personality Disorder, Schizophrenia, Depression Integumentary: Yes (Scalp irritation after shampoo, ITCHY SKIN) Blood Disorders: Yes (Iron deficiency) Adverse Reaction/Blood Tranf: No Family Medical History Diabetes mellitus 19 MOTHER FH: lupus 19 MOTHER Hypercholesterolemia 19 MOTHER Hypertension 19 MOTHER Myocardial infarction 19 MOTHER No Pertinent Family Hx Physical Exam Vital Signs Vital Signs - First Documented 07/17/18 20:40 Temp 99.6 Pulse 101 Resp 22 B/P (MAP) 174/93 (120) Pulse Ox 97 O2 Delivery Room Air Capillary Refill : Less Than 3 Seconds Height/Weight/BMI Height: 5'6.00" Weight: 302lbs. 4.0oz. [id number]; 52.9 BMI Method:Stated General Appearance: WD/WN, no apparent distress HEENT: PERRL/EOMI, normal ENT inspection Respiratory: no respiratory distress, no accessory muscle use Gastrointestinal: normal bowel sounds, non tender, soft Rectal: other (rectal exam done with calor RN at the bedside. There are several hemorrhoids. There is one area on the posterior left that appears to be either a small acutely thrombosed hemorrhoid or inflamed tile from a fissure.) Neurologic/Psychiatric: alert, normal mood/affect, oriented x 3 Skin: normal color, warm/dry Progress/Results/Core Measures Results/Orders My Orders Orders - ELYSIA CAMACHO APRN Lidocaine 2% Jelly 30 Ml (Xylocaine Jell (07/17/18 21:00) Hydrocortisone 1% Ointment (Hydrocortiso (07/17/18 21:00) Vital Signs/I&O 07/17/18 20:40 Temp 99.6 Pulse 101 Resp 22 B/P (MAP) 174/93 (120) Pulse Ox 97 O2 Delivery Room Air Blood Pressure Mean: 120 Departure Impression Primary Impression: Hemorrhoids Qualified Codes: K64.9 - Unspecified hemorrhoids Disposition: HOME, SELF-CARE Condition: Stable Departure-Patient Inst. Decision time for Depature: 21:05 Referrals: CORI MUHAMMAD MD (PCP/Family) Primary Care Physician Patient Instructions: Hemorrhoids (DC), Anal Fissure (DC) Add. Discharge Instructions: 1. Apply topical hydrocortisone cream twice daily. Apply the lidocaine jelly as needed for pain control. Do your best to keep her stools very soft which includes lots of water, lots of fiber, stool softener like Colace one tablet twice daily and MiraLAX as needed. ELYSIA CAMACHO APRN Jul 17, 2018 21:05
[2018-07-17 21:15] VITALS: BP 163/107
[2018-07-17] MEDS: HYDROCORTISONE 1% OINT 30 GM TUBE TOP SCH (21:18)
[2018-07-17] MEDS: LIDOCAINE JELLY 2% (XYLOCAINE) 30 ML TUBE TOP ONE (21:19)
[2018-07-17] MEDS: HYDROCORTISONE 1% CREAM 30 GM TUBE ONE (21:29)
[2018-07-17] MEDS: LIDOCAINE 2% VISCOUS 15 ML UDC ONE (21:30)
== END 2018-07-17 21:15 | disposition home or self-care (01) ==
LOC: EDUNIT# 20:33 → ER 20:34
DX: K64.9 Unspecified hemorrhoids (principal); K21.9 Gastro-esophageal reflux disease without esophagitis; E11.9 Type 2 diabetes mellitus without complications; F31.9 Bipolar disorder, unspecified; F41.9 Anxiety disorder, unspecified; F20.9 Schizophrenia, unspecified; F60.9 Personality disorder, unspecified; F17.210 Nicotine dependence, cigarettes, uncomplicated; I10 Essential (primary) hypertension; Z88.0 Allergy status to penicillin; Z90.49 Acquired absence of other specified parts of digestive tract; Z98.51 Tubal ligation status
CPT/HCPCS: 99283

== ENCOUNTER 2019-08-04 18:38 | Emergency (ER) | payer MEDICARE ==
[~2019-08-04] VITALS: Ht 167 cm; Wt 131.6 kg
[2019-08-04] MEDS ORDERED: CEPH500T PO (19:42)
--- NOTE | 2019-08-04 19:42 | ED EENT ---
History of Present Illness General Chief Complaint: Dental Problems/Pain Stated Complaint: TOOTH PAIN Nursing Triage Note: TOOTH PAIN STARTING 3-4 DAYS AGO. History of Present Illness Date Seen by Provider: Aug 04, 2019 Time Seen by Provider: 19:00 Initial Comments 39 year-old female Patient reports dental pain, present for the last 3 -4 days, left lower. She has an appointment at the dental clinic tomorrow at 8 AM, however her family with concern is to be started on an antibiotic tonight and not wait until tomorrow. Prearrival Treatment: over the counter meds (Tylenol approximately 8 hours ago.) Associated Symptoms: No denies symptoms, No change in hearing, No cough, No drooling, No ear drainage, No facial pain/swelling, No fever, No malaise, No nasal congestion/drainage, No poor fluid intake, No poor solids intake, No sinus infection, No sore throat; tooth pain; No voice change, No other Allergies and Home Medications Allergies Coded Allergies: Penicillins (Unverified Allergy, Intermediate, HIVES, 01/29/13) Home Medications Amitriptyline HCl 100 Mg Tablet, 100 MG PO HS, (Reported) Cephalexin 500 Mg Tablet, 500 MG PO TID Prescribed by: TERRI JIMENES on 08/04/191941 Hyoscyamine Sulfate 0.125 Mg Tab.subl, 1-2 TAB SL Q4H Prescribed by: NATE PAZ on 02/15/1821 Krill/Om-3/Dha/Epa/Phospho/Ast 1 Each Capsule, 1 EACH PO DAILY, (Reported) Lisinopril 10 Mg Tablet, 10 MG PO DAILY, (Reported) Omeprazole 20 Mg Tablet.dr, 20 MG PO DAILY, (Reported) Ondansetron 4 Mg Tab.rapdis, 4 MG PO Q4H Prescribed by: NATE PAZ on 02/15/1821 Pioglitazone HCl 15 Mg Tablet, 15 MG PO DAILY, (Reported) Ziprasidone 60 Mg Capsule, 120 MG PO HS, (Reported) Patient Home Medication List Home Medication List Reviewed: Yes Review of Systems Review of Systems Constitutional: no symptoms reported, see HPI Mouth: see HPI; denies loose teeth; pain (dental) All Other Systems Reviewed Negative Unless Noted: Yes Past Nmyvyex-Mmriul-Ofeowl Hx Past Med/Social Hx: Reviewed Nursing Past Med/Soc Hx Patient Social History Type Used: Cigarettes Recent Foreign Travel: No Contact w/Someone Who Travel: No Recent Infectious Disease Expo: No Recent Hopitalizations: No Immunizations Up To Date Tetanus Booster (TDap): Unknown Seasonal Allergies Seasonal Allergies: No Past Medical History Surgeries: Yes ( X 2) Appendectomy, Section, Gallbladder, Tubal Ligation Respiratory: No Cardiac: Yes Hypertension Neurological: No Reproductive Disorders: Yes (endometriosis) Female 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 Sexually Transmitted Disease: No HIV/AIDS: No Genitourinary: Yes Bladder Infection Gastrointestinal: Yes Gastroesophageal Reflux, Chronic Diarrhea Musculoskeletal: No Endocrine: Yes Diabetes, Non-Insulin dep HEENT: No Cancer: No Psychosocial: Yes (EXTENSIVE PSYCH ISSUES) Sleep Difficulties, Anxiety, Bipolar, Personality Disorder, Schizophrenia, Depression Integumentary: Yes (Scalp irritation after shampoo, ITCHY SKIN) Blood Disorders: Yes (Iron deficiency) Adverse Reaction/Blood Tranf: No Family Medical History Diabetes mellitus 19 MOTHER FH: lupus 19 MOTHER Hypercholesterolemia 19 MOTHER Hypertension 19 MOTHER Myocardial infarction 19 MOTHER No Pertinent Family Hx Physical Exam Vital Signs Vital Signs - First Documented 08/04/19 18:49 Temp 37.1 Pulse 90 Resp 16 B/P (MAP) 160/75 (103) Pulse Ox 100 O2 Delivery Room Air Height, Weight, BMI Height: 5'6.00" Weight: 302lbs. 4.0oz. 136.526423bk; 47.00 BMI Method:Stated General Appearance: no apparent distress Ears: bilateral ear auricle normal, bilateral ear canal normal, bilateral ear TM normal Nose: normal inspection; No active bleeding, No discharge Mouth/Throat: pharynx normal; No mandibular swelling, No maxillary swelling, No pharynx swelling; other (inflammation and tenderness left lower molar. ) Neck: non-tender, full range of motion; No lymphadenopathy (R), No lymphadenopathy (L) Cardiovascular: normal peripheral pulses, regular rate, rhythm Respiratory: chest non-tender, lungs clear, normal breath sounds Neurologic/Psychiatric: no motor/sensory deficits, alert, normal mood/affect, oriented x 3 Skin: normal color, warm/dry; No rash Progress/Results/Core Measures Results/Orders My Orders Orders - TERRI JIMENES Cephalexin Capsule (Keflex Capsule) (08/04/19 19:43) Ibuprofen Tablet (Motrin Tablet) (08/04/19 19:45) Medications Given in ED Current Medications Medications Dose Ordered Sig/Yogesh Route Start Time Stop Time Status Last Admin Dose Admin Ibuprofen 600 mg ONCE ONCE PO 08/04/19 19:45 08/04/19 19:46 DC 08/04/19 19:49 600 MG Vital Signs/I&O 08/04/19 08/04/19 18:49 19:50 Temp 37.1 37.1 Pulse 90 90 Resp 16 16 B/P (MAP) 160/75 (103) 160/75 (103) Pulse Ox 100 100 O2 Delivery Room Air Blood Pressure Mean: 103 Departure Impression Primary Impression: Dental abscess Additional Impression: Pain, dental Disposition: HOME, SELF-CARE Condition: Improved Departure-Patient Inst. Decision time for Depature: 19:40 Referrals: CORI MUHAMMAD MD (PCP/Family) Primary Care Physician Patient Instructions: Dental Pain (DC) Add. Discharge Instructions: Warm salt water gargles every 2 hours while awake. Take antibiotics as prescribed and keep her scheduled appointment with the dentist for tomorrow morning. Alternate between Tylenol 650 mg and ibuprofen 600 mg every 4 hours for pain. Alternate warm compresses and ice to left cheek. Use [id number] dental pain relief medications as needed, such as Oragel. Return to the emergency department for new, urgent health care needs. All discharge instructions reviewed with patient and/or family. Voiced understanding. Scripts Cephalexin (Cephalexin) 500 Mg Tablet 500 MG PO TID, #15 TAB 0 Refills Prov: TERRI JIMENES 08/04/19 TERRI JIMENES Aug 04, 2019 19:42
[2019-08-04] MEDS ORDERED: CEPHALEXIN 250 MG (KEFLEX) CAP PO STA (19:43)
[2019-08-04] MEDS ORDERED: IBUPROFEN 600 MG (MOTRIN) TAB PO ONE (19:45)
[2019-08-04 19:50] VITALS: BP 160/75
== END 2019-08-04 19:50 | disposition home or self-care (01) ==
LOC: EDUNIT# 18:38 → ER 18:39
DX: K04.7 Periapical abscess without sinus (principal); I10 Essential (primary) hypertension; K21.9 Gastro-esophageal reflux disease without esophagitis; E11.9 Type 2 diabetes mellitus without complications; F41.9 Anxiety disorder, unspecified; F31.9 Bipolar disorder, unspecified; F60.9 Personality disorder, unspecified; F20.9 Schizophrenia, unspecified; Z88.0 Allergy status to penicillin; Z90.49 Acquired absence of other specified parts of digestive tract; Z98.51 Tubal ligation status; Z82.49 Family history of ischemic heart disease and other diseases of the circulatory system
CPT/HCPCS: 99283

== ENCOUNTER 2019-08-21 21:03 | Emergency (ER) | payer MEDICARE ==
[~2019-08-21] VITALS: Ht 167.7 cm; Wt 131.6 kg
[~2019-08-21 21:03] MED LIST changes: +CEPH500T PO
--- NOTE | 2019-08-21 21:44 | ED Fall/Injury ---
General Chief Complaint: Trauma-Non Activation Stated Complaint: FELL DOWN STAIRS Source: patient Exam Limitations: no limitations History of Present Illness Date Seen by Provider: Aug 21, 2019 Time Seen by Provider: 21:30 Initial Comments To ER with c/o diffuse midline back pain from neck to tailbone. She fell down her stairs yesterday at about 1 PM while taking her dog outside and hit her mid and low back on every step on the way down. She did not hit her head. She denies any extremity abdomen or chest pain. She also reports that her "chronic idiopathic urticaria" is "flaring up" and she would like something for it. Occurred: just prior to arrival Severity: moderate Injuries/Pain Location: no injury, back Context: slipped Loss of Consciousness: no loss of consciousness Associated Symptoms (Fall): No Headache; Neck Pain Allergies and Home Medications Allergies Coded Allergies: Penicillins (Unverified Allergy, Intermediate, HIVES, 01/29/13) Home Medications Amitriptyline HCl 100 Mg Tablet, 100 MG PO HS, (Reported) Cephalexin 500 Mg Tablet, 500 MG PO TID Prescribed by: TERRI JIMENES on 08/04/191941 Hydroxyzine Pamoate 25 Mg Capsule, 25 MG PO Q4H PRN for ITCHING Prescribed by: ELYSIA CAMACHO on 08/21/192218 Hyoscyamine Sulfate 0.125 Mg Tab.subl, 1-2 TAB SL Q4H Prescribed by: NATE PAZ on 02/15/1821 Krill/Om-3/Dha/Epa/Phospho/Ast 1 Each Capsule, 1 EACH PO DAILY, (Reported) Lisinopril 10 Mg Tablet, 10 MG PO DAILY, (Reported) Methocarbamol 750 Mg Tablet, 750 MG PO Q4H PRN for PAIN-MODERATE (5-7) Prescribed by: ELYSIA CAMACHO on 08/21/192218 Naproxen 500 Mg Tablet, 500 MG PO BID PRN for PAIN-MODERATE (5-7) Prescribed by: ELYSIA CAMACHO on 08/21/192218 Omeprazole 20 Mg Tablet.dr, 20 MG PO DAILY, (Reported) Ondansetron 4 Mg Tab.rapdis, 4 MG PO Q4H Prescribed by: NATE PAZ on 02/15/1821 Pioglitazone HCl 15 Mg Tablet, 15 MG PO DAILY, (Reported) Ziprasidone 60 Mg Capsule, 120 MG PO HS, (Reported) Patient Home Medication List Home Medication List Reviewed: Yes Review of Systems Review of Systems Constitutional: see HPI Eyes: No Symptoms Reported Ears, Nose, Mouth, Throat: no symptoms reported Respiratory: no symptoms reported Cardiovascular: no symptoms reported Genitourinary: no symptoms reported Musculoskeletal: see HPI, back pain Skin: no symptoms reported Psychiatric/Neurological: No Symptoms Reported Past Hlfiqgl-Yhxffx-Zarqtw Hx Patient Social History Type Used: Cigarettes Recent Foreign Travel: No Contact w/Someone Who Travel: No Recent Hopitalizations: No Immunizations Up To Date Tetanus Booster (TDap): Unknown Seasonal Allergies Seasonal Allergies: No Past Medical History Surgeries: Yes ( X 2) Appendectomy, Section, Gallbladder, Tubal Ligation Respiratory: No Cardiac: Yes Hypertension Neurological: No Reproductive Disorders: Yes (endometriosis) Female Reproductive Disorders: 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 Sexually Transmitted Disease: No HIV/AIDS: No Genitourinary: Yes Bladder Infection Gastrointestinal: Yes Gastroesophageal Reflux, Chronic Diarrhea Musculoskeletal: No Endocrine: Yes Diabetes, Non-Insulin dep HEENT: No Cancer: No Psychosocial: Yes (EXTENSIVE PSYCH ISSUES) Sleep Difficulties, Anxiety, Bipolar, Personality Disorder, Schizophrenia, Depression Integumentary: Yes (Scalp irritation after shampoo, ITCHY SKIN) Blood Disorders: Yes (Iron deficiency) Adverse Reaction/Blood Tranf: No Family Medical History Diabetes mellitus 19 MOTHER FH: lupus 19 MOTHER Hypercholesterolemia 19 MOTHER Hypertension 19 MOTHER Myocardial infarction 19 MOTHER No Pertinent Family Hx Physical Exam Vital Signs Capillary Refill : Height, Weight, BMI Height: 5'6.00" Weight: 302lbs. 4.0oz. 136.053225rv; 47.00 BMI Method:Stated General Appearance: WD/WN, no apparent distress Respiratory: normal breath sounds, no respiratory distress, no accessory muscle use Gastrointestinal: normal bowel sounds, soft Back: normal inspection, vertebral tenderness (tenderness to palpation from cervical spine down to the sacrum without abrasion and ecchymosis or erythema.) Extremities: normal range of motion, non-tender Neurologic/Psychiatric: alert, normal mood/affect, oriented x 3 Skin: normal color, warm/dry Progress/Results/Core Measures Results/Orders My Orders Orders - ELYSIA CAMACHO APRN Hydroxyzine Cap/Tab (Vistaril) (08/21/19 21:45) Ketorolac Injection (Toradol Injection) (08/21/19 21:45) Orphenadrine Injection (Norflex Injectio (08/21/19 21:45) Ct Cervical Spine Wo (08/21/19 21:37) Ct Thoracic/Lumbar Spine Wo (08/21/19 21:37) Medications Given in ED Current Medications Medications Dose Ordered Sig/Yogesh Route Start Time Stop Time Status Last Admin Dose Admin Hydroxyzine Pamoate 25 mg ONCE ONCE PO 08/21/19 21:45 08/21/19 21:46 DC 08/21/19 22:19 25 MG Ketorolac Tromethamine 60 mg ONCE ONCE IM 08/21/19 21:45 08/21/19 21:46 DC 08/21/19 22:20 60 MG Orphenadrine Citrate 60 mg ONCE ONCE IM 08/21/19 21:45 08/21/19 21:46 DC 08/21/19 22:19 60 MG Diagnostic Imaging Diagonstic Imaging: Xray, CT Comments ANAM: CONCHITA GRIFFITH MED REC#: [id number] PT STATUS: REG ER : 1980 PHYSICIAN: ELYSIA CAMACHO APRN ADMIT DATE: 08/21/19/ER Draft Date of Exam:08/21/19 CT CERVICAL SPINE WO PROCEDURE: CT cervical spine without contrast. TECHNIQUE: Multiple contiguous axial images were obtained through the cervical spine without the use of intravenous contrast. Sagittal and coronal reformations were then performed. Auto Exposure Controls were utilized during the CT exam to meet ALARA standards for radiation dose reduction. INDICATION: Fall, pain. EXAMINATION: CT cervical spine without contrast dated 08/21/2019. FINDINGS: Alignment is preserved. No fractures or subluxations. Narrowing and spurring noted predominantly at C5-C6. No acute osseous abnormality appreciated. Visualized lung apices appear clear. The prevertebral soft tissues are unremarkable other than lobularity throughout the thyroid which could be further characterized sonographically in a nonemergent basis. IMPRESSION: 1. Degenerative findings as above. No acute osseous abnormality. 2. Prominent thyroid see above discussion and recommendations. Dictated on workstation # [id number] Dict: 08/21/192207 Trans: 08/21/192210 [id number] Interpreted by: MELISSA MEYER MD Electronically signed by: NAME: CONCHITA GRIFFITH [facility] REC#: [id number] PT STATUS: REG ER : 1980 PHYSICIAN: ELYSIA CAMACHO APRN ADMIT DATE: 08/21/19/ER Draft Date of Exam:08/21/19 CT THORACIC/LUMBAR SPINE WO PROCEDURE: CT thoracic and lumbar spine without contrast. TECHNIQUE: Multiple contiguous axial images were obtained through the thoracic and lumbar spine without the use of intravenous contrast. Sagittal and coronal reformations were then performed. INDICATION: Pain after a fall. EXAMINATION: Thoracolumbar spine dated 08/21/2019. FINDINGS: Alignment is preserved. No compression fractures visualized. No acute abnormality seen with diffuse multilevel degenerative findings throughout the thoracic and lumbar spine. The visualized lungs demonstrate scattered groundglass type opacities perhaps due to atelectasis. Linear scarring at the bases. Evidence of old granulomatous disease is also noted. Visualized intrathoracic structures otherwise unremarkable. Small hiatal hernia noted. Visualized intra-abdominal structures unremarkable. IMPRESSION: Diffuse multilevel degenerative findings with no acute osseous abnormality. Other findings as above. Dictated on workstation # [id number] Dict: 08/21/19 221 Trans: 08/21/19 2216 [id number] Interpreted by: MELISSA MEYER MD Electronically signed by: Departure Impression Primary Impression: Contusion of back Additional Impression: Muscle strain Disposition: 01 HOME, SELF-CARE Condition: Stable Departure-Patient Inst. Decision time for Depature: 22:16 Referrals: VANNESSA PATEL MD (PCP/Family) Primary Care Physician Patient Instructions: Cervical Muscle Strain, Contusion (DC) Add. Discharge Instructions: 1. Your thyroid had a slightly abnormal appearance to it. This can be followed with an outpatient ultrasound of the thyroid. Your family doctor can order this. All discharge instructions reviewed with patient and/or family. Voiced understanding. Scripts Hydroxyzine Pamoate (Vistaril) 25 Mg Capsule 25 MG PO Q4H PRN for ITCHING, #20 CAP Prov: ELYSIA CAMACHO APRN 08/21/19 Methocarbamol (Robaxin-750) 750 Mg Tablet 750 MG PO Q4H PRN for PAIN-MODERATE (5-7), #14 TAB Prov: ELYSIA CAMACHO APRN 08/21/19 Naproxen (Naprosyn) 500 Mg Tablet 500 MG PO BID PRN for PAIN-MODERATE (5-7), #30 TAB 0 Refills Prov: ELYSIA CAMACHO APRN 08/21/19 Work/School Note: Work Release Form Date Seen in the Emergency Department: Aug 21, 2019 Return to Work: Aug 23, 2019 Copy Copies To 1: VANNESSA PATEL MD, PETER J APRN Aug 21, 2019 21:44
[2019-08-21] MEDS ORDERED: hydrOXYzine (VISTARIL/ATARAX) 25 MG capsule/tablet PO ONE (21:45)
[2019-08-21] MEDS ORDERED: KETOROLAC 60 MG/2 ML VIAL IM ONE (21:45)
[2019-08-21] MEDS ORDERED: ORPHENADRINE 60 MG/2 ML (NORFLEX) AMP IM ONE (21:45)
--- NOTE | 2019-08-21 22:12 | Diagnostic Imaging Report ---
PROCEDURE: CT cervical spine without contrast. TECHNIQUE: Multiple contiguous axial images were obtained through the cervical spine without the use of intravenous contrast. Sagittal and coronal reformations were then performed. Auto Exposure Controls were utilized during the CT exam to meet ALARA standards for radiation dose reduction. INDICATION: Fall, pain. EXAMINATION: CT cervical spine without contrast dated 08/21/2019. FINDINGS: Alignment is preserved. No fractures or subluxations. Narrowing and spurring noted predominantly at C5-C6. No acute osseous abnormality appreciated. Visualized lung apices appear clear. The prevertebral soft tissues are unremarkable other than lobularity throughout the thyroid which could be further characterized sonographically in a nonemergent basis. IMPRESSION: 1. Degenerative findings as above. No acute osseous abnormality. 2. Prominent thyroid see above discussion and recommendations. Dictated by: Dictated on workstation # [id number]
--- NOTE | 2019-08-21 22:16 | Diagnostic Imaging Report ---
PROCEDURE: CT thoracic and lumbar spine without contrast. TECHNIQUE: Multiple contiguous axial images were obtained through the thoracic and lumbar spine without the use of intravenous contrast. Sagittal and coronal reformations were then performed. INDICATION: Pain after a fall. EXAMINATION: Thoracolumbar spine dated 08/21/2019. FINDINGS: Alignment is preserved. No compression fractures visualized. No acute abnormality seen with diffuse multilevel degenerative findings throughout the thoracic and lumbar spine. The visualized lungs demonstrate scattered groundglass type opacities perhaps due to atelectasis. Linear scarring at the bases. Evidence of old granulomatous disease is also noted. Visualized intrathoracic structures otherwise unremarkable. Small hiatal hernia noted. Visualized intra-abdominal structures unremarkable. IMPRESSION: Diffuse multilevel degenerative findings with no acute osseous abnormality. Other findings as above. Dictated by: Dictated on workstation # [id number]
[2019-08-21] MEDS ORDERED: HYDR25CA PO (22:19)
[2019-08-21] MEDS ORDERED: NAPR-1071 PO (22:19)
[2019-08-21] MEDS ORDERED: METH-313 PO (22:19)
[2019-08-21 22:45] VITALS: BP 145/69
== END 2019-08-21 22:45 | disposition home or self-care (01) ==
LOC: EDUNIT# 21:03 → ER 21:04
DX: S30.0XXA Contusion of lower back and pelvis, initial encounter (principal); S16.1XXA Strain of muscle, fascia and tendon at neck level, initial encounter; I10 Essential (primary) hypertension; E11.9 Type 2 diabetes mellitus without complications; K21.9 Gastro-esophageal reflux disease without esophagitis; F41.9 Anxiety disorder, unspecified; F31.9 Bipolar disorder, unspecified; F60.9 Personality disorder, unspecified; F20.9 Schizophrenia, unspecified; Z88.0 Allergy status to penicillin; Z90.49 Acquired absence of other specified parts of digestive tract; Z98.51 Tubal ligation status; Z82.49 Family history of ischemic heart disease and other diseases of the circulatory system; W10.9XXA Fall (on) (from) unspecified stairs and steps, initial encounter
CPT/HCPCS: 72125; 72128; 72131; 99284

== ENCOUNTER 2019-09-08 19:11 | Emergency (ER) | payer MEDICARE ==
[~2019-09-08] VITALS: Ht 177.8 cm; Wt 90.9 kg
[~2019-09-08 19:11] MED LIST changes: +HYDR25CA PO; +METH-313 PO; +NAPR-1071 PO
[2019-09-08] MEDS ORDERED: ZIPRASIDONE 20 MG (GEODON) CAP PO ONE (19:30)
[2019-09-08] MEDS ORDERED: NS IV 1000 ML 1,000 ML IV SCH (19:30)
[2019-09-08 19:31] LABS: BASOPHILS # (AUTO) 0.1 10^3/uL (0.0-0.1); BASOPHILS % (AUTO) 0 % (0-10); EOSINOPHILS # (AUTO) 0.1 10^3/uL (0.0-0.3); EOSINOPHILS % (AUTO) 1 % (0-10); HEMATOCRIT 44 % (35-52); HEMOGLOBIN 13.7 G/DL (11.5-16.0); LYMPHOCYTES # (AUTO) 2.7 X 10^3 (1.0-4.0); LYMPHOCYTES % (AUTO) 22 % (12-44); MEAN CORPUSCULAR HEMOGLOBIN 24 PG (25-34); MEAN CORPUSCULAR HGB CONC 31 G/DL (32-36); MEAN CORPUSCULAR VOLUME 76 FL (80-99); MEAN PLATELET VOLUME 10.1 FL (7.4-10.4); MONOCYTES # (AUTO) 0.9 X 10^3 (0.0-1.0); MONOCYTES % (AUTO) 7 % (0-12); NEUTROPHILS # (AUTO) 8.7 X 10^3 (1.8-7.8); NEUTROPHILS % (AUTO) 70 % (42-75); PLATELET COUNT 334 10^3/uL (130-400); RED CELL DISTRIBUTION WIDTH 25.3 % (10.0-14.5); WHITE BLOOD COUNT 12.4 10^3/uL (4.3-11.0)
--- NOTE | 2019-09-08 19:35 | ED General ---
General Chief Complaint: Dizziness/Syncope Stated Complaint: FALL Source of Information: Patient Exam Limitations: No Limitations History of Present Illness Date Seen by Provider: Sep 08, 2019 Time Seen by Provider: 19:00 Initial Comments To ER with reports of seizure-like activity. She was standing up in the bathroom getting ready to take a bath when she became lightheaded, fell down landing on her buttocks. Does not recall hitting her head, she does recall falling down. She states that she's been generally weak for the past couple of days, she hasn't eaten or slept much. She was just released from behavioral health unit about one week ago, was started on Zoloft and a new antipsychotic to help with "the voices". However she states that because the voices she's been unable to sleep at night and ultimately hasn't slept. She hasn't 8. She also left her 3 days ago. She would like to go back on her Geodon because she felt like it was more helpful than the current antipsychotic (does not know the name of the new antipsychotic) Timing/Duration: 1-2 Days Severity: Moderate Allergies and Home Medications Allergies Coded Allergies: Penicillins (Unverified Allergy, Intermediate, HIVES, 01/29/13) Home Medications Amitriptyline HCl 100 Mg Tablet, 100 MG PO HS, (Reported) Cephalexin 500 Mg Tablet, 500 MG PO TID Prescribed by: TERRI JIMENES on 08/04/191941 Hydroxyzine Pamoate 25 Mg Capsule, 25 MG PO Q4H PRN for ITCHING Prescribed by: ELYSIA CAMACHO on 08/21/192218 Hyoscyamine Sulfate 0.125 Mg Tab.subl, 1-2 TAB SL Q4H Prescribed by: NATE PAZ on 02/15/18 0022 Krill/Om-3/Dha/Epa/Phospho/Ast 1 Each Capsule, 1 EACH PO DAILY, (Reported) Lisinopril 10 Mg Tablet, 10 MG PO DAILY, (Reported) Methocarbamol 750 Mg Tablet, 750 MG PO Q4H PRN for PAIN-MODERATE (5-7) Prescribed by: ELYSIA CAMACHO on 08/21/192218 Naproxen 500 Mg Tablet, 500 MG PO BID PRN for PAIN-MODERATE (5-7) Prescribed by: ELYSIA CAMACHO on 08/21/192218 Omeprazole 20 Mg Tablet.dr, 20 MG PO DAILY, (Reported) Ondansetron 4 Mg Tab.rapdis, 4 MG PO Q4H Prescribed by: NATE PAZ on 02/15/18 0022 Pioglitazone HCl 15 Mg Tablet, 15 MG PO DAILY, (Reported) Ziprasidone 60 Mg Capsule, 120 MG PO HS, (Reported) Patient Home Medication List Home Medication List Reviewed: Yes Review of Systems Review of Systems Constitutional: see HPI EENTM: see HPI Respiratory: no symptoms reported Cardiovascular: see HPI Genitourinary: no symptoms reported Musculoskeletal: no symptoms reported Skin: no symptoms reported Psychiatric/Neurological: No Symptoms Reported Hematologic/Lymphatic: No Symptoms Reported Immunological/Allergic: no symptoms reported Past Xkeaspk-Hfkzqy-Bgysyf Hx Patient Social History Alcohol Use: Denies Use Recreational Drug Use: No Smoking Status: Current Everyday Smoker Type Used: Cigarettes 2nd Hand Smoke Exposure: No Recent Foreign Travel: No (N) Contact w/Someone Who Travel: No Recent Hopitalizations: No Immunizations Up To Date Tetanus Booster (TDap): Unknown Seasonal Allergies Seasonal Allergies: No Past Medical History Surgeries: Yes ( X 2; HERNIA REPAIR) Appendectomy, Section, Gallbladder, Tubal Ligation Respiratory: No Cardiac: Yes Hypertension Neurological: No Reproductive Disorders: Yes (endometriosis) Female Reproductive Disorders: Endometriosis [employer]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: Tubal 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 Sexually Transmitted Disease: No HIV/AIDS: No Genitourinary: Yes Bladder Infection Gastrointestinal: Yes Gastroesophageal Reflux, Chronic Diarrhea Musculoskeletal: No Endocrine: Yes Diabetes, Non-Insulin dep HEENT: No Cancer: No Psychosocial: Yes (EXTENSIVE PSYCH ISSUES) Sleep Difficulties, Anxiety, Bipolar, Personality Disorder, Schizophrenia, Depression Integumentary: Yes ("CIU" (CHRONIC SKIN ITCHING)) Blood Disorders: Yes (Iron deficiency) Adverse Reaction/Blood Tranf: No Family Medical History Diabetes mellitus 19 MOTHER FH: lupus 19 MOTHER Hypercholesterolemia 19 MOTHER Hypertension 19 MOTHER Myocardial infarction 19 MOTHER No Pertinent Family Hx Physical Exam Vital Signs Vital Signs - First Documented 09/08/19 19:15 Temp 36.4 Pulse 82 Resp 18 B/P (MAP) 142/61 (88) Pulse Ox 98 O2 Delivery Room Air Capillary Refill : Height, Weight, BMI Height: 5'6.00" Weight: 302lbs. 4.0oz. 136.943176ep; 46.00 BMI Method:Stated General Appearance: No Apparent Distress, WD/WN, Obese Eyes: Bilateral Eye Normal Inspection, Bilateral Eye PERRL, Bilateral Eye EOMI Neck: Full Range of Motion, Normal Inspection Respiratory: No Accessory Muscle Use, No Respiratory Distress Cardiovascular: Regular Rate, Rhythm, Normal Peripheral Pulses Gastrointestinal: Normal Bowel Sounds, Non Tender, Soft Neurologic/Psychiatric: Alert, Oriented x3 Skin: Normal Color, Warm/Dry Progress/Results/Core Measures Suspected Sepsis SIRS Temperature: Pulse: Respiratory Rate: Laboratory Tests 09/08/19 19:24: White Blood Count 12.4H Blood Pressure / Mean: Laboratory Tests 09/08/19 19:24: Creatinine 0.89, Platelet Count 334, Total Bilirubin 0.3 Results/Orders Lab Results Laboratory Tests Test 09/08/19 19:24 09/08/19 20:54 Range/Units White Blood Count 12.4 H 4.3-11.0 10^3/uL Red Blood Count 5.80 4.35-5.85 10^6/uL Hemoglobin 13.7 11.5-16.0 G/DL Hematocrit 44 35-52 % Mean Corpuscular Volume 76 L 80-99 FL Mean Corpuscular Hemoglobin 24 L 25-34 PG Mean Corpuscular Hemoglobin Concent 31 L 32-36 G/DL Red Cell Distribution Width 25.3 H 10.0-14.5 % Platelet Count 334 130-400 10^3/uL Mean Platelet Volume 10.1 7.4-10.4 FL Neutrophils (%) (Auto) 70 42-75 % Lymphocytes (%) (Auto) 22 12-44 % Monocytes (%) (Auto) 7 0-12 % Eosinophils (%) (Auto) 1 0-10 % Basophils (%) (Auto) 0 0-10 % Neutrophils # (Auto) 8.7 H 1.8-7.8 X 10^3 Lymphocytes # (Auto) 2.7 1.0-4.0 X 10^3 Monocytes # (Auto) 0.9 0.0-1.0 X 10^3 Eosinophils # (Auto) 0.1 0.0-0.3 10^3/uL Basophils # (Auto) 0.1 0.0-0.1 10^3/uL Sodium Level 135 135-145 MMOL/L Potassium Level 4.0 3.6-5.0 MMOL/L Chloride Level 101 98-107 MMOL/L Carbon Dioxide Level 22 21-32 MMOL/L Anion Gap 12 5-14 MMOL/L Blood Urea Nitrogen 7 7-18 MG/DL Creatinine 0.89 0.60-1.30 MG/DL Estimat Glomerular Filtration Rate > 60 BUN/Creatinine Ratio 8 Glucose Level 143 H 70-105 MG/DL Calcium Level 9.5 8.5-10.1 MG/DL Corrected Calcium 9.1 8.5-10.1 MG/DL Total Bilirubin 0.3 0.1-1.0 MG/DL Aspartate Amino Transf (AST/SGOT) 18 5-34 U/L Alanine Aminotransferase (ALT/SGPT) 16 0-55 U/L Alkaline Phosphatase 86 40-136 U/L Total Protein 7.6 6.4-8.2 GM/DL Albumin 4.5 3.2-4.5 GM/DL Serum Test, Qualitative NEGATIVE NEGATIVE Salicylates Level < 5.0 L 5.0-20.0 MG/DL Acetaminophen Level < 10 L 10-30 UG/ML Serum Alcohol < 10 <10 MG/DL Urine Color YELLOW Urine Clarity CLEAR Urine pH 6.0 5-9 Urine Specific [place] <=1.005 1.016-1.022 Urine Protein NEGATIVE NEGATIVE Urine Glucose (UA) NEGATIVE NEGATIVE Urine Ketones NEGATIVE NEGATIVE Urine Nitrite NEGATIVE NEGATIVE Urine Bilirubin NEGATIVE NEGATIVE Urine Urobilinogen 0.2 < = 1.0 MG/DL Urine Leukocyte Esterase NEGATIVE NEGATIVE Urine RBC (Auto) NEGATIVE NEGATIVE Urine RBC NONE /HPF Urine WBC NONE /HPF Urine Squamous Epithelial Cells 5-10 /HPF Urine Crystals NONE /LPF Urine Bacteria TRACE /HPF Urine Casts NONE /LPF Urine Mucus SMALL H /LPF Urine Culture Indicated NO My Orders Orders - ELYSIA CAMACHO APRN Ziprasidone Capsule (Geodon Capsule) (09/08/19 19:30) Cbc With Automated Diff (09/08/19 19:19) Comprehensive Metabolic Panel (09/08/19 19:19) Ua Culture If Indicated (09/08/19 19:19) Drug Screen Stat (Urine) (09/08/19 19:19) Ed Iv/Invasive Line Start (09/08/19 19:19) Hcg,Qualitative Serum (09/08/19 19:19) Ns Iv 1000 Ml (Sodium Chloride 0.9%) (09/08/19 19:30) Lumbar Spine - 2-3 Views (09/08/19 19:31) Salicylate (09/08/19 20:10) Acetaminophen (09/08/19 20:10) Alcohol (09/08/19 20:10) Alprazolam Tablet (Xanax Tablet) (09/08/19 21:00) Medications Given in ED Current Medications Medications Dose Ordered Sig/Yogesh Route Start Time Stop Time Status Last Admin Dose Admin Ziprasidone 20 mg ONCE ONCE PO 09/08/19 19:30 09/08/19 19:31 DC 09/08/19 19:45 20 MG Vital Signs/I&O 09/08/19 19:15 Temp 36.4 Pulse 82 Resp 18 B/P (MAP) 142/61 (88) Pulse Ox 98 O2 Delivery Room Air Capillary Refill : Departure Communication (Admissions) She has assured us that she is not suicidal or homicidal. Impression Primary Impression: Sleep deprivation Additional Impressions: Auditory hallucination Schizophrenia Qualified Codes: F20.9 - Schizophrenia, unspecified syncopal event Disposition: 01 HOME, SELF-CARE Condition: Stable Departure-Patient Inst. Decision time for Depature: 21:27 Referrals: VANNESSA PATEL MD (PCP/Family) Primary Care Physician Patient Instructions: Syncope (Fainting) (DC) Add. Discharge Instructions: 1. Medication as directed 2. Return to ER for any concerns 3. Follow-up with your Dr. Solares week 4. All discharge instructions reviewed with patient and/or family. Voiced understanding. ELYSIA CAMACHO APRN Sep 08, 2019 19:35
[2019-09-08 19:54] LABS: ALANINE AMINOTRANSFERASE 16 U/L (0-55); ALBUMIN 4.5 GM/DL (3.2-4.5); ALKALINE PHOSPHATASE 86 U/L (40-136); BILIRUBIN,TOTAL 0.3 MG/DL (0.1-1.0); BUN/CREATININE RATIO 8; CALCIUM 9.5 MG/DL (8.5-10.1); CARBON DIOXIDE 22 MMOL/L (21-32); CHLORIDE 101 MMOL/L (98-107); CREATININE SERUM 0.89 MG/DL (0.60-1.30); GFR ESTIMATED > 60; GLUCOSE 143 MG/DL (70-105); SODIUM 135 MMOL/L (135-145); TOTAL PROTEIN 7.6 GM/DL (6.4-8.2)
--- NOTE | 2019-09-08 20:19 | Diagnostic Imaging Report ---
INDICATION: Fall with back pain AP and lateral views of the lumbar spine are obtained. Correlation is made with CT of the lumbar spine obtained on 08/21/2019. Lumbar spinal curvature and alignment are unremarkable. There is no evidence of an acute fracture. No abnormal lytic or sclerotic focus is seen. IMPRESSION: No acute abnormality or adverse change is identified. Dictated by: Dictated on workstation # [id number]
[2019-09-08 20:26] LABS: SALICYLATE < 5.0 MG/DL (5.0-20.0)
[2019-09-08 20:28] LABS: ACETAMINOPHEN < 10 UG/ML (10-30)
[2019-09-08] MEDS ORDERED: ALPRAZolam 0.5 MG (XANAX) TAB PO SCH (21:00)
[2019-09-08 21:12] LABS: BILIRUBIN,URINE NEGATIVE (NEGATIVE); CLARITY,URINE CLEAR; COLOR,URINE YELLOW; GLUCOSE, URINE (UA) NEGATIVE (NEGATIVE); KETONES,URINE NEGATIVE (NEGATIVE); LEUKOCYTE ESTERASE ,URINE NEGATIVE (NEGATIVE); NITRITE,URINE NEGATIVE (NEGATIVE); PROTEIN,URINE NEGATIVE (NEGATIVE)
[2019-09-08 21:18] LABS: BACTERIA,URINE TRACE /HPF
[2019-09-08 21:26] LABS: AMPHETAMINE SCREEN, URINE NEGATIVE (NEGATIVE); BARBITURATE SCREEN URINE NEGATIVE (NEGATIVE); BENZODIAZEPINES SCREEN URINE NEGATIVE (NEGATIVE); CANNABINOID SCREEN, URINE NEGATIVE (NEGATIVE); COCAINE SCREEN URINE NEGATIVE (NEGATIVE); METHADONE STAT NEGATIVE (NEGATIVE); METHAMPHETAMINE SCREEN URINE S NEGATIVE (NEGATIVE); OPIATE SCREEN URINE NEGATIVE (NEGATIVE); OXYCODONE STAT NEGATIVE (NEGATIVE); PROPOXYPHENE STAT NEGATIVE (NEGATIVE); TRICYCLIC ANTIDEPRESSANTS SCRE POSITIVE (NEGATIVE)
[2019-09-08] MEDS ORDERED: RX-LORAZEPAM (ATIVAN) 0.5 MG TAB PPK#4 PO STA (21:28)
[2019-09-08 21:35] VITALS: BP 145/71
== END 2019-09-08 21:38 | disposition home or self-care (01) ==
LOC: EDUNIT# 19:11 → ER 19:12
DX: F20.9 Schizophrenia, unspecified (principal); R55 Syncope and collapse; I10 Essential (primary) hypertension; E11.9 Type 2 diabetes mellitus without complications; F41.9 Anxiety disorder, unspecified; F31.9 Bipolar disorder, unspecified; K21.9 Gastro-esophageal reflux disease without esophagitis; F17.210 Nicotine dependence, cigarettes, uncomplicated; Z72.820 Sleep deprivation; Z88.0 Allergy status to penicillin; Z82.49 Family history of ischemic heart disease and other diseases of the circulatory system
CPT/HCPCS: 36415; 72100; 80053; 80306; 80320; 80329; 81000; 84703; 85025; 96361

== ENCOUNTER 2021-06-24 00:29 | Emergency (ER) | payer MEDICARE, MEDICAID ==
[~2021-06-24] VITALS: Ht 172 cm; Wt 90.0 kg
[~2021-06-24 00:29] MED LIST changes: -LISI10TA2 PO; +LISI10TA25 PO
[2021-06-24] MEDS ORDERED: FLUC200T PO (00:56)
--- NOTE | 2021-06-24 00:56 | ED Abdominal Pain ---
General Chief Complaint: Abdominal/GI Problems Stated Complaint: ABD PAIN Nursing Triage Note: PATIENT COMPLAINT OF ABDOMINAL PAIN. NAUSEA. VAGINAL DISCHARGE. OTC MEDICINE FOR YEAST INFECTION. Source of Information: Patient Exam Limitations: No Limitations History of Present Illness Date Seen by Provider: Jun 24, 2021 Time Seen by Provider: 00:39 Initial Comments Patient presents ER by private conveyance from home with chief complaint she thinks has a yeast infection. She took a 3-day course of antiyeast medicine [id number] without resolution of symptoms. She says she recently was tested for STDs and HIV as well as hepatitis, all were negative. Her exsignificant other was positive for trichomonas so she took a course of antibiotics and since then has had discharge which she associates with a yeast infection. She is also having some pain all over in her abdomen which she associates with her past umbilical hernia repair by Dr. Gramajo. She has a history of schizophrenia. Allergies and Home Medications Allergies Coded Allergies: Penicillins (Unverified Allergy, Intermediate, HIVES, 01/29/13) Patient Home Medication List Home Medication List Reviewed: Yes Amitriptyline HCl (Amitriptyline HCl) 100 Mg Tablet, 100 MG PO HS, (Reported) Entered as Reported by: RAYMUNDO RUELAS on 02/14/182241 Cephalexin (Cephalexin) 500 Mg Tablet, 500 MG PO TID Prescribed by: TERRI JIMENES on 08/04/191941 Fluconazole (Diflucan) 200 Mg Tablet, 200 MG PO ONCE Prescribed by: RENE MCKINNEY on 06/24/21 0056 Hydroxyzine Pamoate (Vistaril) 25 Mg Capsule, 25 MG PO Q4H PRN for ITCHING Prescribed by: ELYSIA CAMACHO on 08/21/19 2219 Hyoscyamine Sulfate (Levsin-Sl) 0.125 Mg Tab.subl, 1-2 TAB SL Q4H Prescribed by: NATE PAZ on 02/15/18 0022 Krill/Om-3/Dha/Epa/Phospho/Ast (Megared Snook-3 Krill Oil Sfgl) 1 Each Capsule, 1 EACH PO DAILY, (Reported) Entered as Reported by: KARSTEN SÁNCHEZ on 11/26/15 2313 Lisinopril (Lisinopril) 10 Mg Tablet, 10 MG PO DAILY, (Reported) Entered as Reported by: RAYMUNDO RUELAS on 02/14/182241 Methocarbamol (Robaxin-750) 750 Mg Tablet, 750 MG PO Q4H PRN for PAIN-MODERATE (5-7) Prescribed by: ELYSIA CAMACHO on 08/21/192218 Naproxen (Naprosyn) 500 Mg Tablet, 500 MG PO BID PRN for PAIN-MODERATE (5-7) Prescribed by: ELYSIA CAMACHO on 08/21/192218 Omeprazole (Omeprazole) 20 Mg Tablet.dr, 20 MG PO DAILY, (Reported) Entered as Reported by: KYLE VALDEZ on 01/29/131937 Ondansetron (Zofran Odt) 4 Mg Tab.rapdis, 4 MG PO Q4H Prescribed by: NATE PAZ on 02/15/1821 Pioglitazone HCl (Actos) 15 Mg Tablet, 15 MG PO DAILY, (Reported) Entered as Reported by: RAYMUNDO RUELAS on 02/14/182241 Ziprasidone (Geodon) 60 Mg Capsule, 120 MG PO HS, (Reported) Entered as Reported by: KYLE VALDEZ on 01/29/131937 Review of Systems Review of Systems Constitutional: No chills, No fever, No malaise EENTM: No Blurred Vision, No Double Vision Respiratory: Denies Cough, Denies Shortness of Air Cardiovascular: Denies Chest Pain, Denies Lightheadedness Gastrointestinal: See HPI, Abdominal Pain; Denies Constipated; Diarrhea; Denies Nausea Genitourinary: Denies Burning, Denies Discharge Musculoskeletal: No back pain, No joint pain Skin: No pruritus, No rash Psychiatric/Neurological: Denies Headache, Denies Numbness All Other Systems Reviewed Negative Unless Noted: Yes Past Tryuufp-Inobqc-Rvqevt Hx Patient Social History Tobacco Use?: Yes Tobacco type used: Cigarettes Smoking Status: Current Everyday Smoker Use of E-Cig and/or Vaping dev: Yes E-Cig or Vaping type used: Nicotine Use of E-Cig and/or Vaping Jagdeep: Current Everyday User Substance use?: No Alcohol Use?: No Immunizations Up To Date Tetanus Booster (TDap): Unknown First/Initial COVID19 Vaccinat: MODERNA Second COVID19 Vaccination Jose: MODERNA COVID19 Vaccine Dock Builder: MODERNA Seasonal Allergies Seasonal Allergies: No Past Medical History Surgeries: Yes ( X 2; HERNIA REPAIR) Appendectomy, Section, Gallbladder, Tubal Ligation Respiratory: No Cardiac: Yes Hypertension Neurological: No Reproductive Disorders: Yes (endometriosis) Female Reproductive Disorders: Endometriosis 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 History: Tubal Ligation Sexually Transmitted Disease: No HIV/AIDS: No Genitourinary: Yes Bladder Infection Gastrointestinal: Yes Gastroesophageal Reflux, Chronic Diarrhea Musculoskeletal: No Endocrine: Yes Diabetes, Non-Insulin dep HEENT: No Cancer: No Psychosocial: Yes (EXTENSIVE PSYCH ISSUES) Sleep Difficulties, Anxiety, Bipolar, Personality Disorder, Schizophrenia, Depression Integumentary: Yes ("CIU" (CHRONIC SKIN ITCHING)) Blood Disorders: Yes (Iron deficiency) Adverse Reaction/Blood Tranf: No Family Medical History Diabetes mellitus 19 MOTHER FH: lupus 19 MOTHER Hypercholesterolemia 19 MOTHER Hypertension 19 MOTHER Myocardial infarction 19 MOTHER No Pertinent Family Hx Physical Exam Vital Signs Vital Signs - First Documented 06/24/21 00:40 Temp 36.0 Pulse 82 Resp 20 B/P (MAP) 142/84 (103) Pulse Ox 97 O2 Delivery Room Air Capillary Refill : Less Than 3 Seconds Height/Weight/BMI Height: 5'6.00" Weight: 302lbs. 4.0oz. 136.768161bi; 30.00 BMI Method:Stated General Appearance: WD/WN, no apparent distress HEENT: PERRL/EOMI, pharynx normal Neck: full range of motion, supple, normal inspection Respiratory: lungs clear, normal breath sounds, no respiratory distress, no accessory muscle use Cardiovascular: normal peripheral pulses, regular rate, rhythm Gastrointestinal: normal bowel sounds, non tender, soft, no organomegaly Extremities: normal range of motion, normal capillary refill Neurologic/Psychiatric: alert, normal mood/affect, oriented x 3 Skin: normal color, warm/dry Progress/Results/Core Measures Results/Orders My Orders Orders - RENE MCKINNEY Ua Culture If Indicated (06/24/21 00:37) Urine Bedside (06/24/21 00:37) Vital Signs/I&O 06/24/21 06/24/21 00:40 01:00 Temp 36.0 36.0 Pulse 82 82 Resp 20 20 B/P (MAP) 142/84 (103) 142/84 Pulse Ox 97 97 O2 Delivery Room Air Room Air Blood Pressure Mean: 103 Progress Progress Note : Time: 01:00 Progress Note Aseptic vital signs, nontender, nonsurgical abdomen with no mesenteric signs. Patient wants to follow-up with Dr. Gramajo to review her umbilical hernia. She declined this collecting any urine specimen, labs. She declined anything for pain or nausea. She says she will follow-up outpatient Departure Impression Primary Impression: Hernia, umbilical Qualified Codes: K42.9 - Umbilical hernia without obstruction or gangrene Additional Impression: Yeast infection involving the vagina and surrounding area Disposition: HOME, SELF-CARE Condition: Stable Departure-Patient Inst. Decision time for Depature: 00:54 Referrals: DAWSON GRAMAJO DAVID F MD (PCP/Family) Primary Care Physician Patient Instructions: Yeast Infection (DC) Add. Discharge Instructions: Diflucan was sent to the pharmacy. Take the 200 mg of Diflucan x1 and you shou ld expect resolution of symptoms over the next couple days. If it persist the need to follow-up with Dr. Rajput. Call Dr. Gramajo on Saturday and request a follow-up appointment to review your umbilical hernia. Return to the ER if you are having worsening, severe intractable pain. All discharge instructions reviewed with patient and/or family. Voiced understanding. Scripts Fluconazole (Diflucan) 200 Mg Tablet 200 MG PO ONCE for 1 Day, #1 TAB 0 Refills Prov: RENE MCKINNEY 06/24/21 Copy Copies To 1: DAWSON GRAMAJO TITUS J Jun 24, 2021 00:56
[2021-06-24 01:00] VITALS: BP 142/84
== END 2021-06-24 01:00 | disposition home or self-care (01) ==
LOC: EDUNIT# 00:29 → ER 00:34
DX: K42.9 Umbilical hernia without obstruction or gangrene (principal); B37.3 Candidiasis of vulva and vagina; I10 Essential (primary) hypertension; K21.9 Gastro-esophageal reflux disease without esophagitis; E11.9 Type 2 diabetes mellitus without complications; F41.9 Anxiety disorder, unspecified; F31.9 Bipolar disorder, unspecified; F20.9 Schizophrenia, unspecified; F17.210 Nicotine dependence, cigarettes, uncomplicated; Z79.899 Other long term (current) drug therapy
CPT/HCPCS: 99283